=== PATIENT | female | born 1950 | race Caucasian/White ===

== ENCOUNTER 2023-12-04 15:51 | Emergency (ER) | payer OTHER ==
[~2023-12-04] VITALS: Ht 172.7 cm; Wt 62.4 kg
[2023-12-04 16:41] VITALS: BP 167/44; RESP 18; O2SAT 95
[2023-12-04 16:43] VITALS: PULSE 63
== END 2023-12-04 17:01 | disposition left against medical advice (07) ==
LOC: ER 15:54
DX: D64.9 Anemia, unspecified (principal); R53.1 Weakness; I25.10 Atherosclerotic heart disease of native coronary artery without angina pectoris; J44.9 Chronic obstructive pulmonary disease, unspecified; E11.9 Type 2 diabetes mellitus without complications; E78.5 Hyperlipidemia, unspecified; I10 Essential (primary) hypertension; Z95.0 Presence of cardiac pacemaker; Z88.6 Allergy status to analgesic agent
CPT/HCPCS: 93005

== ENCOUNTER 2023-12-06 06:11 | Inpatient (IN) | payer OTHER ==
[2023-12-06] VITALS (15 sets, daily range): BP systolic 129–157; BP diastolic 49–76; PULSE 60–76; RESP 14–26; TEMP 97.6–98.2; O2SAT 90–96
[~2023-12-06] VITALS: Ht 172.7 cm; Wt 69.8 kg
[2023-12-06 07:43] LABS: Basophils # (auto) 0 10 ^3/uL (0-0.2); Basophils % (auto) 0.2 % (0.0-2.0); Eosinophils # (auto) 0 10 ^3/uL (0-0.8); Mean Corpuscular Hemoglobin 17.6 pg (28.0-32.0); White Blood Cell 3.6 10^3/uL (4.4-10.8)
[2023-12-06 07:48] LABS: Hematocrit 19.7 % (36.0-46.0); Lymphocytes # (auto) 1.5 10 ^3/uL (0.4-5.4); Lymphocytes % (auto) 43.1 % (10.0-50.0); Mean Corpuscular Hgb Conc. 29.7 g/dL (32.0-36.0); Mean Corpuscular Volume 59.3 fL (80.0-100.0); Monocytes # (auto) 0.2 10 ^3/uL (0-1.3); Monocytes % (auto) 6.2 % (0.0-12.0); Neutrophils # (auto) 1.8 10 ^3/uL (1.6-8.6); Neutrophils % (auto) 49.5 % (37.0-80.0); Red Blood Cells 3.31 10^6/uL (4.0-5.20)
[2023-12-06 07:51] LABS: INR 1.08 (0.9-1.15); Prothrombin Time 11.4 sec (9.3-11.8)
[2023-12-06 07:58] LABS: Alanine Aminotransferase 20 U/L (7-40); Albumin 4.2 g/dL (3.2-4.8); Alkaline Phosphatase 78 U/L (46-116); Anion Gap 6 (5-15); BUN/Creatinine Ratio 17.8 (10.0-20.0); Blood Urea Nitrogen 16 mg/dL (9-23); Calcium 9.1 mg/dL (8.7-10.4); Carbon Dioxide 28 mmol/L (20-30); Chloride 107 mmol/L (98-107); Glucose 130 mg/dL (74-106); Potassium 3.3 mmol/L (3.5-5.1); Sodium 141 mmol/L (136-145)
[2023-12-06 07:59] LABS: Aspartate Aminotransferase 18 U/L (13-40); Bilirubin, Total 0.4 mg/dL (0.2-1.0); Total Protein 6.2 g/dL (5.7-8.2)
[2023-12-06 08:00] LABS: Hemoglobin 5.8 g/dL (12.2-16.2)
[2023-12-06 09:03] LABS: Hypochromia Marked; Platelet Estimate Decreased
[2023-12-06] MEDS: OXYCODONE W/ ACETAMINOPHEN 5/325MG TABLET PO ONE (10:37)
[2023-12-06] MEDS ORDERED: DEXTROSE (50%) 50ML SYRG IV PRN (14:15)
[2023-12-06] MEDS ORDERED: ACETAMINOPHEN 325 MG TAB PO PRN (14:15)
[2023-12-06] MEDS ORDERED: SODIUM CHLORIDE 0.9% 1,000 ML IV SCH (14:15)
[2023-12-06] MEDS ORDERED: NITROGLYCERIN 0.4 MG SL TAB SL PRN (14:15)
[2023-12-06] MEDS ORDERED: MORPHINE SULFATE INJ 2 MG/ml SYRG IV PRN (14:15)
[2023-12-06 15:07] LABS: % Iron Saturation 4.2 % (15-50)
[2023-12-06] MEDS: SODIUM CHLORIDE 0.9% 1,000 ML IV SCH (15:56)
[2023-12-06] MEDS: ALBUTEROL SULF 2.5 MG/0.5ML(0.5%) NEB SOLN ONE (16:43)
[2023-12-06] MEDS: ALBUTEROL SULF 2.5 MG/0.5ML(0.5%) NEB SOLN NEB ONE (16:45)
[2023-12-06] MEDS: ACCU-CHEK COMFORT CURVE STRIP VI SCH (17:39)
[2023-12-06] MEDS: InsuLIN REG 1unit/0.01ml Soln (100units/ml) SC SCH (17:40)
[2023-12-06 18:15] LABS: Basophils # (auto) 0 10 ^3/uL (0-0.2); Basophils % (auto) 0.3 % (0.0-2.0); Eosinophils # (auto) 0.1 10 ^3/uL (0-0.8); Eosinophils % (auto) 2.2 % (0.0-7.0); Hematocrit 28.7 % (36.0-46.0); Hemoglobin 8.7 g/dL (12.2-16.2); Lymphocytes # (auto) 1.4 10 ^3/uL (0.4-5.4); Lymphocytes % (auto) 22.8 % (10.0-50.0); Mean Corpuscular Hemoglobin 20.2 pg (28.0-32.0); Mean Corpuscular Hgb Conc. 30.3 g/dL (32.0-36.0); Mean Corpuscular Volume 66.8 fL (80.0-100.0); Monocytes # (auto) 0.4 10 ^3/uL (0-1.3); Monocytes % (auto) 5.9 % (0.0-12.0); Neutrophils # (auto) 4.3 10 ^3/uL (1.6-8.6); Neutrophils % (auto) 68.8 % (37.0-80.0); Nucleated Red Blood Cells % 0.1 %; White Blood Cell 6.3 10^3/uL (4.4-10.8)
[2023-12-06] MEDS: IPRATROPIUM BROM 0.5 MG/2.5ML INH SOL NEB SCH (18:27)
[2023-12-06] MEDS: ALBUTEROL SULF 2.5 MG/0.5ML(0.5%) NEB SOLN NEB SCH (18:27)
[2023-12-06 18:51] LABS: Anisocytosis Moderate; Ovalocytes FEW; Platelet Estimate Decreased; Tear Drop Cells FEW
[2023-12-06] MEDS: POTASSIUM CHL 20 Meq TABLET PO ONE (19:41)
[2023-12-06] MEDS: FUROSEMIDE 40 MG/4 ML VIAL IV ONE (19:51)
[2023-12-06] MEDS: FUROSEMIDE 20 MG/2 ML VIAL IV ONE (22:28)
[2023-12-07] VITALS (12 sets, daily range): BP systolic 119–120; BP diastolic 51–90; PULSE 60–69; RESP 12–20; TEMP 97.2–98; O2SAT 3–100
[2023-12-07 00:25] LABS: Hematocrit 27.6 % (36.0-46.0); Hemoglobin 8.8 g/dL (12.2-16.2)
[2023-12-07 00:31] LABS: Urine Bacteria None Seen /hpf (None Seen)
[2023-12-07 02:08] LABS: Urine Blood Negative /uL (Negative); Urine Clarity Clear (Clear); Urine Color Colorless (Yellow); Urine Protein, UAD Negative (Negative); Urine Specific Gravity 1.006 (1.001-1.035); Urine Urobilinogen Normal (Negative); Urine WBC <1 /hpf (0 - 5)
[2023-12-07] MEDS: POTASSIUM CHL 20 Meq TABLET PO ONE (04:24)
[2023-12-07 04:30] LABS: Mean Corpuscular Hemoglobin 20.6 pg (28.0-32.0)
[2023-12-07 04:35] LABS: Hematocrit 29.5 % (36.0-46.0); Hemoglobin 9.3 g/dL (12.2-16.2); Mean Corpuscular Hgb Conc. 31.6 g/dL (32.0-36.0); Mean Corpuscular Volume 65.3 fL (80.0-100.0); Red Blood Cells 4.52 10^6/uL (4.0-5.20); White Blood Cell 6.1 10^3/uL (4.4-10.8)
[2023-12-07 04:39] LABS: Alanine Aminotransferase 25 U/L (7-40); Albumin 4.2 g/dL (3.2-4.8); Alkaline Phosphatase 84 U/L (46-116); Anion Gap 6 (5-15); Aspartate Aminotransferase 24 U/L (13-40); BUN/Creatinine Ratio 16.3 (10.0-20.0); Bilirubin, Total 0.8 mg/dL (0.2-1.0); Blood Urea Nitrogen 14 mg/dL (9-23); Calcium 9.4 mg/dL (8.7-10.4); Carbon Dioxide 30 mmol/L (20-30); Chloride 105 mmol/L (98-107); Glucose 108 mg/dL (74-106); Potassium 3.6 mmol/L (3.5-5.1); Sodium 141 mmol/L (136-145); Total Protein 6.8 g/dL (5.7-8.2)
[2023-12-07 04:55] LABS: Band Neutrophils % (manual) 0; Basophils % (manual) 0 (0.0-2.0); Blast Cells 0; Eosinophils % (manual) 0 (0-7); Metamyelocytes % 0; Myelocytes % 0; Promyelocytes % 0; Reactive Lymphocytes 0; Red Cell Distribution Width 28.1 % (11.8-14.3)
[2023-12-07] MEDS: MORPHINE SULFATE INJ 2 MG/ml SYRG IV PRN (05:00)
[2023-12-07] MEDS: ONDANSETRON HCL 4 MG/2 ML VIAL IV PRN (05:00)
[2023-12-07] MEDS: FUROSEMIDE 40 MG/4 ML VIAL IV SCH (05:41)
[2023-12-07 07:58] LABS: Hypochromia Marked; Lymphocytes % (manual) 11 (10.0-50.0); Monocytes % (manual) 5 (0-12); Platelet Estimate Decreased
[2023-12-07 07:59] LABS: Anisocytosis Moderate; Ovalocytes MANY
[2023-12-07] MEDS ORDERED: OXYC325T10 PO (11:07)
[2023-12-07] MEDS ORDERED: ATOR-47 PO (11:07)
[2023-12-07] MEDS ORDERED: SERT-377 PO (11:07)
[2023-12-07] MEDS ORDERED: FLUT1SPR5 (11:07)
[2023-12-07] MEDS ORDERED: METF-489 PO (11:07)
[2023-12-07] MEDS ORDERED: APIX5TAB PO (11:07)
[2023-12-07] MEDS ORDERED: FURO40TA4 PO (11:07)
[2023-12-07] MEDS ORDERED: LISI-275 PO (11:07)
[2023-12-07 14:40] LABS: % Iron Saturation 4.2 % (15-50)
[2023-12-08] VITALS (18 sets, daily range): BP systolic 109–155; BP diastolic 57–74; PULSE 60–75; RESP 16–98; TEMP 97.9–99; O2SAT 3–100
[2023-12-08 05:51] LABS: Basophils # (auto) 0 10 ^3/uL (0-0.2); Eosinophils # (auto) 0.1 10 ^3/uL (0-0.8); Monocytes # (auto) 0.3 10 ^3/uL (0-1.3); Nucleated Red Blood Cells % 0.1 %
[2023-12-08 05:54] LABS: Basophils % (auto) 0.3 % (0.0-2.0); Eosinophils % (auto) 2.5 % (0.0-7.0); Hematocrit 28.6 % (36.0-46.0); Hemoglobin 9.1 g/dL (12.2-16.2); Lymphocytes # (auto) 1.5 10 ^3/uL (0.4-5.4); Lymphocytes % (auto) 31.9 % (10.0-50.0); Mean Corpuscular Hemoglobin 20.5 pg (28.0-32.0); Mean Corpuscular Hgb Conc. 31.7 g/dL (32.0-36.0); Mean Corpuscular Volume 64.9 fL (80.0-100.0); Monocytes % (auto) 7.2 % (0.0-12.0); Neutrophils # (auto) 2.7 10 ^3/uL (1.6-8.6); Neutrophils % (auto) 58.1 % (37.0-80.0); Red Blood Cells 4.41 10^6/uL (4.0-5.20); Red Cell Distribution Width 27.6 % (11.8-14.3); White Blood Cell 4.6 10^3/uL (4.4-10.8)
[2023-12-08 06:09] LABS: Calcium 9.4 mg/dL (8.7-10.4); Chloride 103 mmol/L (98-107); Potassium 3.6 mmol/L (3.5-5.1); Sodium 139 mmol/L (136-145)
[2023-12-08 06:11] LABS: Anion Gap 5 (5-15); Carbon Dioxide 31 mmol/L (20-30)
[2023-12-08 06:16] LABS: BUN/Creatinine Ratio 24.2 (10.0-20.0); Blood Urea Nitrogen 23 mg/dL (9-23); Glucose 89 mg/dL (74-106)
[2023-12-08] MEDS: HYDROcodone-ACET 5/325MG TAB PO PRN (20:57)
[2023-12-08] MEDS ORDERED: SENNA 8.6 MG TAB PO PRN (21:30)
[2023-12-08] MEDS: BISACODYL 5 MG EC TAB PO PRN (22:06)
[2023-12-09] VITALS (18 sets, daily range): BP systolic 114–137; BP diastolic 43–79; PULSE 60–76; RESP 14–18; TEMP 97.8–98.3; O2SAT 3–99
[2023-12-09 07:08] LABS: Basophils # (auto) 0 10 ^3/uL (0-0.2); Eosinophils # (auto) 0.1 10 ^3/uL (0-0.8); Hemoglobin 8.8 g/dL (12.2-16.2); Lymphocytes # (auto) 1.3 10 ^3/uL (0.4-5.4); Monocytes # (auto) 0.3 10 ^3/uL (0-1.3); Neutrophils # (auto) 2.6 10 ^3/uL (1.6-8.6); White Blood Cell 4.3 10^3/uL (4.4-10.8)
[2023-12-09 07:11] LABS: Basophils % (auto) 0.5 % (0.0-2.0); Eosinophils % (auto) 3.1 % (0.0-7.0); Lymphocytes % (auto) 30.4 % (10.0-50.0); Mean Corpuscular Hemoglobin 20.3 pg (28.0-32.0); Mean Corpuscular Hgb Conc. 31.5 g/dL (32.0-36.0); Mean Corpuscular Volume 64.5 fL (80.0-100.0); Monocytes % (auto) 6.9 % (0.0-12.0); Neutrophils % (auto) 59.1 % (37.0-80.0); Nucleated Red Blood Cells % 0.1 %; Red Blood Cells 4.35 10^6/uL (4.0-5.20)
[2023-12-09 07:20] LABS: Red Cell Distribution Width 27.8 % (11.8-14.3)
[2023-12-09 07:40] LABS: Anion Gap 9 (5-15); Calcium 8.6 mg/dL (8.7-10.4); Carbon Dioxide 22 mmol/L (20-30); Chloride 107 mmol/L (98-107); Potassium 3.2 mmol/L (3.5-5.1); Sodium 138 mmol/L (136-145)
[2023-12-09 07:45] LABS: Glucose 105 mg/dL (74-106)
[2023-12-09 07:46] LABS: BUN/Creatinine Ratio 28.2 (10.0-20.0); Blood Urea Nitrogen 24 mg/dL (9-23)
[2023-12-09] MEDS ORDERED: MIDAZOLAM HCL 2MG/2ML 2ml VIAL (1mg/ml) ONE (17:41)
[2023-12-09] MEDS ORDERED: ONDANSETRON HCL 4 MG/2 ML VIAL IV ONE (17:45)
[2023-12-09] MEDS ORDERED: PROPOFOL 10 MG/ML 20 ML IV ONE (17:55)
[2023-12-09] MEDS ORDERED: GOLYTELY 4L KIT PO ONE (18:00)
[2023-12-10] VITALS (17 sets, daily range): BP systolic 102–142; BP diastolic 51–69; PULSE 56–78; RESP 16–20; TEMP 97.9–98.5; O2SAT 91–100
[2023-12-10 05:30] LABS: Basophils # (auto) 0 10 ^3/uL (0-0.2); Eosinophils # (auto) 0.1 10 ^3/uL (0-0.8); Hematocrit 29.6 % (36.0-46.0); Hemoglobin 9.3 g/dL (12.2-16.2); Mean Corpuscular Volume 64.7 fL (80.0-100.0)
[2023-12-10 05:37] LABS: Basophils % (auto) 0.7 % (0.0-2.0); Eosinophils % (auto) 4.2 % (0.0-7.0); Lymphocytes # (auto) 0.6 10 ^3/uL (0.4-5.4); Lymphocytes % (auto) 19.1 % (10.0-50.0); Mean Corpuscular Hemoglobin 20.3 pg (28.0-32.0); Mean Corpuscular Hgb Conc. 31.4 g/dL (32.0-36.0); Monocytes # (auto) 0.4 10 ^3/uL (0-1.3); Monocytes % (auto) 13.8 % (0.0-12.0); Neutrophils # (auto) 1.8 10 ^3/uL (1.6-8.6); Neutrophils % (auto) 62.2 % (37.0-80.0); Red Blood Cells 4.57 10^6/uL (4.0-5.20)
[2023-12-10 05:38] LABS: Chloride 103 mmol/L (98-107); Potassium 3.6 mmol/L (3.5-5.1); Red Cell Distribution Width 27.7 % (11.8-14.3); Sodium 137 mmol/L (136-145)
[2023-12-10 05:39] LABS: Anion Gap 6 (5-15); Calcium 9.8 mg/dL (8.7-10.4); Carbon Dioxide 28 mmol/L (20-30)
[2023-12-10 05:44] LABS: BUN/Creatinine Ratio 25.8 (10.0-20.0); Blood Urea Nitrogen 24 mg/dL (9-23); Glucose 117 mg/dL (74-106)
[2023-12-10 09:58] LABS: Platelet Estimate Decreased
[2023-12-10 10:02] LABS: Hypochromia Marked
[2023-12-10 10:03] LABS: Anisocytosis Moderate; Ovalocytes MANY
[2023-12-11] VITALS (16 sets, daily range): BP systolic 114–142; BP diastolic 49–89; PULSE 57–79; RESP 16–21; TEMP 98.1–98.6; O2SAT 94–100
[2023-12-11 06:10] LABS: Basophils # (auto) 0 10 ^3/uL (0-0.2); Nucleated Red Blood Cells % 0.1 %
[2023-12-11 06:14] LABS: Chloride 102 mmol/L (98-107); Potassium 3.4 mmol/L (3.5-5.1); Sodium 137 mmol/L (136-145)
[2023-12-11 06:15] LABS: Anion Gap 5 (5-15); Carbon Dioxide 30 mmol/L (20-30)
[2023-12-11 06:16] LABS: Calcium 9.2 mg/dL (8.7-10.4)
[2023-12-11 06:19] LABS: Basophils % (auto) 0.8 % (0.0-2.0); Eosinophils # (auto) 0.2 10 ^3/uL (0-0.8); Eosinophils % (auto) 4.8 % (0.0-7.0); Hemoglobin 9.6 g/dL (12.2-16.2); Lymphocytes # (auto) 0.6 10 ^3/uL (0.4-5.4); Lymphocytes % (auto) 18.9 % (10.0-50.0); Mean Corpuscular Hemoglobin 20.9 pg (28.0-32.0); Mean Corpuscular Volume 65.3 fL (80.0-100.0); Monocytes # (auto) 0.4 10 ^3/uL (0-1.3); Monocytes % (auto) 12.3 % (0.0-12.0); Neutrophils % (auto) 63.2 % (37.0-80.0); Red Blood Cells 4.59 10^6/uL (4.0-5.20); Red Cell Distribution Width 28.4 % (11.8-14.3); White Blood Cell 3.2 10^3/uL (4.4-10.8)
[2023-12-11 06:20] LABS: BUN/Creatinine Ratio 26.9 (10.0-20.0); Blood Urea Nitrogen 25 mg/dL (9-23); Glucose 100 mg/dL (74-106)
[2023-12-11 08:26] LABS: Platelet Estimate Decreased
[2023-12-11 08:28] LABS: Anisocytosis Moderate; Hypochromia Moderate; Ovalocytes MODERATE
[2023-12-11] MEDS: GOLYTELY 4L KIT PO ONE (16:33)
[2023-12-12] VITALS (10 sets, daily range): BP systolic 102–132; BP diastolic 48–68; PULSE 54–82; RESP 14–22; TEMP 97.7–98.5; O2SAT 92–100
[2023-12-12] MEDS ORDERED: FLUMAZENIL 0.1 MG/ML INJ 10ML MDV IV ONE (08:23)
[2023-12-12] MEDS ORDERED: diphenhdrAMINE HCL 50 MG/1 ML VL ONE (08:23)
[2023-12-12] MEDS ORDERED: NALOXONE HCL 0.4 MG/ML VIAL ONE (08:23)
[2023-12-12] MEDS ORDERED: SODIUM CHLORIDE LOCK 10 ML ONE (08:23)
[2023-12-12] MEDS: fentaNYL CITRATE 100 MCG/2 ML VL ONE (08:40)
[2023-12-12] MEDS: MIDAZOLAM HCL 5 MG/ML-1ML VIAL ONE (08:40)
== END 2023-12-12 11:40 | disposition home health service (06) | DRG 811 ==
LOC: ER 06:11 → TELE 14:15 → TELE-WESTW 12-07 15:54
PROVIDERS: ADMIT Internal Medicine; ATTEND Internal Medicine
PROC: 30233N1 Transfusion of Nonautologous Red Blood Cells into Peripheral Vein, Percutaneous Approach (ICD-10-PCS; 2023-12-06)
PROC: 0DB98ZX Excision of Duodenum, Via Natural or Artificial Opening Endoscopic, Diagnostic (ICD-10-PCS; principal; 2023-12-09 17:32)
PROC: 0DJD8ZZ Inspection of Lower Intestinal Tract, Via Natural or Artificial Opening Endoscopic (ICD-10-PCS; 2023-12-12)
DX: D50.9 Iron deficiency anemia, unspecified (principal); I50.33 Acute on chronic diastolic (congestive) heart failure; K31.811 Angiodysplasia of stomach and duodenum with bleeding; J96.21 Acute and chronic respiratory failure with hypoxia; I13.0 Hypertensive heart and chronic kidney disease with heart failure and stage 1 through stage 4 chronic kidney disease, or unspecified chronic kidney disease; J44.1 Chronic obstructive pulmonary disease with (acute) exacerbation; I48.20 Chronic atrial fibrillation, unspecified; J98.11 Atelectasis; F17.210 Nicotine dependence, cigarettes, uncomplicated; E11.22 Type 2 diabetes mellitus with diabetic chronic kidney disease; N18.2 Chronic kidney disease, stage 2 (mild); I25.10 Atherosclerotic heart disease of native coronary artery without angina pectoris; E78.5 Hyperlipidemia, unspecified; K76.1 Chronic passive congestion of liver; I27.20 Pulmonary hypertension, unspecified; Z95.5 Presence of coronary angioplasty implant and graft; Z95.0 Presence of cardiac pacemaker; Z90.710 Acquired absence of both cervix and uterus; Z79.01 Long term (current) use of anticoagulants; Z80.1 Family history of malignant neoplasm of trachea, bronchus and lung; Z85.51 Personal history of malignant neoplasm of bladder
CPT/HCPCS: 36415; 45378; 71045; 74176; 80048; 80053; 81001; 82728; 82962; 83540; 83550; 83615; 84132; 85007; 85014; 85018; 85025; 85027; 85610; 86850; 86880; 86900; 86901; 86920; 93306; 94640; G0378; J1815; J2250; J2405; J2704

== ENCOUNTER 2024-01-02 10:19 | Day surgery (SDC) | payer OTHER ==
[~2024-01-02] VITALS: Ht 172.7 cm; Wt 64.0 kg
[~2024-01-02 10:19] MED LIST: AMLO1TAB22 PO; APIX5TAB PO; ATOR-47 PO; FLUT1SPR5; LISI-275 PO; METF-489 PO; PERCOT PO; PREG50CA PO; SERT-377 PO
[2024-01-02] MEDS ORDERED: LIDOCAINE VISCOUS 2% 15ML UD PO ONE (12:00)
[2024-01-02] MEDS ORDERED: fentaNYL CITRATE 100 MCG/2 ML VL IV ONE (12:00)
[2024-01-02] MEDS ORDERED: MIDAZOLAM HCL 2MG/2ML 2ml VIAL (1mg/ml) IV ONE (12:00)
[2024-01-02] MEDS ORDERED: HEPARIN IN NS 1000Units/500mL 1,500 ML ONE (12:07)
[2024-01-02] MEDS ORDERED: IODIXANOL 320MG/ML 100ML BTL IV ONE (12:07)
[2024-01-02] MEDS ORDERED: fentaNYL CITRATE 100 MCG/2 ML VL ONE ×2 (12:15→13:23)
[2024-01-02] MEDS ORDERED: MIDAZOLAM HCL 2MG/2ML 2ml VIAL (1mg/ml) ONE ×2 (12:15→13:23)
[2024-01-02] MEDS ORDERED: VERAPAMIL 2.5MG/ML INJ 2ML VIAL IV ONE (13:22)
[2024-01-02] MEDS ORDERED: HEPARIN SODIUM (PORCINE) 5000 UNITS/ML 1ML VIAL ONE (13:22)
[2024-01-02] MEDS ORDERED: ANGIOMAX 250 MG VIAL IV ONE (13:22)
[2024-01-02] MEDS ORDERED: LIDOCAINE 2%HCL (LOCAL ANESTH.) INJ 20ML MDV ONE (13:23)
[2024-01-02] MEDS ORDERED: hydrALAZINE HCL 20 MG/ML VL ONE (14:14)
== END 2024-01-02 17:15 | disposition home or self-care (01) ==
LOC: CATH 10:19
PROVIDERS: ATTEND Internal Medicine
DX: I08.0 Rheumatic disorders of both mitral and aortic valves (principal); J44.9 Chronic obstructive pulmonary disease, unspecified; F41.8 Other specified anxiety disorders; Z86.2 Personal history of diseases of the blood and blood-forming organs and certain disorders involving the immune mechanism; Z90.710 Acquired absence of both cervix and uterus; Z88.8 Allergy status to other drugs, medicaments and biological substances
CPT/HCPCS: 93312; 93325; 93460; C1769; C1887; C1894; J0360; J1644; J2250; J3010; Q9967; 99152; 99153

== ENCOUNTER 2024-01-23 07:40 | Day surgery (SDC) | payer OTHER ==
[2024-01-23] VITALS (11 sets, daily range): BP systolic 107–150; BP diastolic 44–66; PULSE 60–64; RESP 13–17; TEMP 99.1; O2SAT 91–97
[~2024-01-23] VITALS: Ht 172.7 cm; Wt 64.0 kg
[~2024-01-23 07:40] MED LIST changes: +GABA-339 PO; +MECL-90 PO; +PEN400T PO; +PREG25CA PO; -PREG50CA PO
[2024-01-23] MEDS ORDERED: HEPARIN IN NS 1000Units/500mL 1,500 ML ONE (08:44)
[2024-01-23] MEDS ORDERED: IODIXANOL 320MG/ML 100ML BTL IV ONE (08:44)
[2024-01-23] MEDS ORDERED: ANGIOMAX 250 MG VIAL IV ONE (08:57)
[2024-01-23] MEDS ORDERED: fentaNYL CITRATE 100 MCG/2 ML VL ONE (08:57)
[2024-01-23] MEDS ORDERED: MIDAZOLAM HCL 2MG/2ML 2ml VIAL (1mg/ml) ONE (08:57)
[2024-01-23] MEDS ORDERED: LIDOCAINE 2%HCL (LOCAL ANESTH.) INJ 20ML MDV ONE (08:58)
[2024-01-23] MEDS ORDERED: SODIUM CHL 0.9% 0 ML ONE (08:58)
[2024-01-23] MEDS ORDERED: PRE5T PO (09:03)
== END 2024-01-23 14:10 | disposition home or self-care (01) ==
LOC: CATH 07:40
PROVIDERS: ATTEND Internal Medicine
DX: I70.213 Atherosclerosis of native arteries of extremities with intermittent claudication, bilateral legs (principal); I25.10 Atherosclerotic heart disease of native coronary artery without angina pectoris; F17.210 Nicotine dependence, cigarettes, uncomplicated; J44.9 Chronic obstructive pulmonary disease, unspecified; F41.9 Anxiety disorder, unspecified; I48.0 Paroxysmal atrial fibrillation; Z88.8 Allergy status to other drugs, medicaments and biological substances; Z90.49 Acquired absence of other specified parts of digestive tract; Z79.899 Other long term (current) drug therapy; Z90.710 Acquired absence of both cervix and uterus; Z95.0 Presence of cardiac pacemaker; Z87.440 Personal history of urinary (tract) infections
CPT/HCPCS: 36245; 75716; C1760; C1894; J1644; J2250; J3010; J7030; Q9967; 75710; 99152

== ENCOUNTER 2024-03-05 15:07 | Emergency (ER) | payer OTHER ==
[~2024-03-05] VITALS: Ht 172.7 cm; Wt 63.4 kg
[~2024-03-05 15:07] MED LIST changes: +PRE5T PO
[2024-03-05 15:37] LABS: Basophils # (auto) 0.1 10 ^3/uL (0-0.2); Basophils % (auto) 1.2 % (0.0-2.0); Eosinophils # (auto) 0.1 10 ^3/uL (0-0.8); Eosinophils % (auto) 2.6 % (0.0-7.0); Hematocrit 37.5 % (36.0-46.0); Hemoglobin 11.7 g/dL (12.2-16.2); Lymphocytes # (auto) 1.5 10 ^3/uL (0.4-5.4); Lymphocytes % (auto) 26.8 % (10.0-50.0); Mean Corpuscular Hemoglobin 22.2 pg (28.0-32.0); Mean Corpuscular Hgb Conc. 31.3 g/dL (32.0-36.0); Monocytes # (auto) 0.3 10 ^3/uL (0-1.3); Monocytes % (auto) 5.9 % (0.0-12.0); Neutrophils # (auto) 3.5 10 ^3/uL (1.6-8.6); Neutrophils % (auto) 63.5 % (37.0-80.0); Nucleated Red Blood Cells % 0.2 %; Platelet Count (auto) 187 10^3/uL (140-450); Red Blood Cells 5.29 10^6/uL (4.0-5.20); White Blood Cell 5.5 10^3/uL (4.4-10.8)
[2024-03-05 15:38] LABS: Red Cell Distribution Width 26.6 % (11.8-14.3)
[2024-03-05 15:44] LABS: Urine Bacteria FEW /hpf (None Seen); Urine Blood 2+ /uL (Negative); Urine Clarity Turbid (Clear); Urine Color Light-Yellow (Yellow); Urine Mucus FEW (None Seen); Urine Protein, UAD TRACE (Negative); Urine Specific Gravity 1.016 (1.001-1.035); Urine Urobilinogen Normal (Negative); Urine WBC 72 /hpf (0 - 5); Urine pH 5.5 (5.0-9.0)
[2024-03-05 15:47] VITALS: PULSE 62; RESP 16; O2SAT 98
[2024-03-05 15:58] LABS: Alanine Aminotransferase 11 U/L (7-40); Albumin 4.5 g/dL (3.2-4.8); Alkaline Phosphatase 101 U/L (46-116); Anion Gap 4 (5-15); Aspartate Aminotransferase 12 U/L (13-40); BUN/Creatinine Ratio 21.6 (10.0-20.0); Blood Urea Nitrogen 22 mg/dL (9-23); Calcium 9.8 mg/dL (8.7-10.4); Carbon Dioxide 28 mmol/L (20-31); Chloride 109 mmol/L (98-107); Glucose 124 mg/dL (74-106); Potassium 4.1 mmol/L (3.5-5.1); Sodium 141 mmol/L (136-145)
[2024-03-05 15:59] LABS: Bilirubin, Total 0.3 mg/dL (0.2-1.0); Total Protein 7.2 g/dL (5.7-8.2)
[2024-03-05 16:33] LABS: INR 1.04 (0.9-1.15); Partial Thromboplastin Time 26.6 SEC (24.5-34.5)
[2024-03-05] MEDS: cefTRIAXone 1GM/50ML D5W 50 ML IV ONE (18:31)
[2024-03-05] MEDS: SODIUM CHLORIDE 0.9% 1,000 ML IV ONE (18:31)
[2024-03-05 19:49] VITALS: PULSE 63; RESP 13; TEMP 97.7; O2SAT 88
[2024-03-05 20:06] LABS: Urine Bacteria None Seen /hpf (None Seen)
[2024-03-05 20:30] LABS: Urine Blood Negative /uL (Negative); Urine Clarity Clear (Clear); Urine Color Light-Yellow (Yellow); Urine Protein, UAD Negative (Negative); Urine Specific Gravity 1.016 (1.001-1.035); Urine Urobilinogen Normal (Negative); Urine WBC 5 /hpf (0 - 5); Urine pH 6.5 (5.0-9.0)
[2024-03-05] MEDS: amLODIPine BESYLATE 5 MG TAB PO ONE (20:47)
[2024-03-05 20:51] VITALS: BP 152/60; PULSE 62; RESP 15; O2SAT 92
[2024-03-05] MEDS ORDERED: LISINOPRIL 5 MG TAB PO ONE (21:30)
== END 2024-03-05 21:07 | disposition home or self-care (01) ==
LOC: ER 15:07
DX: I71.40 Abdominal aortic aneurysm, without rupture, unspecified (principal); J44.9 Chronic obstructive pulmonary disease, unspecified; I10 Essential (primary) hypertension; I25.10 Atherosclerotic heart disease of native coronary artery without angina pectoris; E11.9 Type 2 diabetes mellitus without complications; E78.5 Hyperlipidemia, unspecified; Z79.84 Long term (current) use of oral hypoglycemic drugs; Z79.899 Other long term (current) drug therapy; Z90.49 Acquired absence of other specified parts of digestive tract; Z90.710 Acquired absence of both cervix and uterus; Z85.51 Personal history of malignant neoplasm of bladder; Z95.0 Presence of cardiac pacemaker; Z79.01 Long term (current) use of anticoagulants; Z88.5 Allergy status to narcotic agent
CPT/HCPCS: 36415; 74176; 80053; 81001; 82962; 84484; 85025; 85610; 85730; 93005; 96365; 99285; J0696

== ENCOUNTER 2024-05-11 15:06 | Emergency (ER) | payer OTHER ==
[~2024-05-11] VITALS: Ht 167.6 cm; Wt 60.0 kg
[2024-05-11 15:43] VITALS: BP 157/72; PULSE 66; RESP 16; TEMP 98.1; O2SAT 95
[2024-05-11] MEDS: OXYCODONE W/ ACETAMINOPHEN 5/325MG TABLET PO ONE (15:50)
--- NOTE | 2024-05-11 16:20 | DVH ---
US LT LOWER DVT US 05/11/2024 03:50 PM Clinical History: recent dvt Comparison: None Technique: Duplex Doppler evaluation of the deep venous system of the left lower extremity from the common femor al vein to the popliteal vein including color Doppler and spectral/pulsed waveform analysis was perfo rmed. Findings: The common femoral vein demonstrates appropriate compressibility and waveform variability. There is compressibility/patency of the great saphenous vein at the proximal thigh. The femoral vein demonstrates appropriate compressibility and waveform variability. The deep femoral vein demonstrates appropriate compressibility and waveform variability. The popliteal vein demonstrates appropriate compressibility and waveform variability. There is color flow in the tibioperoneal trunk and posterior tibial vein. A 2.8 cm kaur's cyst noted. Impression: 1. No deep venous thrombosis left lower extremity. If clinical concern/symptoms persist or worsen, s hort-interval follow-up study is suggested. 2. Small Kaur's cyst.
--- NOTE | 2024-05-11 16:28 | ED.PDOC ---
HPI Comments 73y F who presents to the ED for chief complaint of chest pain. Pt states she recently had aortic valve replacement 3 days prior and states he has been having groin pain ner site of insertion of surgery with associated chest pain radiating to his chest getting progressively worse since. Pt states the pain is sharp in nature, constant, with no associated exacerbating or relieving factors. Pt otherwise denies diaphoresis, palpitations, shortness of breath, diaphoresis, nausea, vomiting, headache or dizziness. Pt otherwise denies any other symptoms at this time. Chief Complaint: chest pain Time Seen by MD: 16:22 Primary Care Provider: nunu Reviewed Notes: Medications Allergies: Coded Allergies: Meperidine (Verified Allergy, Severe, 01/18/24) Home Meds Reported Medications Prednisone (Prednisone) 5 Mg Tab, 5 MG PO BID 01/23/24 Oxycodone W/ Acetaminophen (Percocet 5/325MG) 1 Tab Tb, 1 TAB PO PRN for MOD TO SEVERE PAIN, #120 TAB 01/18/24 Gabapentin (Gabapentin) 600 Mg Tab, 600 MG PO TID for neuropathy, MG 01/18/24 Pentoxifylline (TRENTAL ER TABLET) 400 Mg Tb, 400 MG PO BID for PVD, TAB 01/18/24 Pregabalin (Lyrica) 25 Mg Cap, 50 MG PO for NERVE PAIN, CAP 01/18/24 Meclizine Hcl (Meclizine Hcl) 25 Mg Tab, 25 MG PO BID for 30 Days, MG 01/18/24 Apixaban Base (ELIQUIS) 5 Mg Tab, 5 MG PO BID for S/P CARDIAC STENTS, TAB 01/01/24 Amlodipine Besylate (Amlodipine Besylate) 5 Mg Tab, 5 MG PO DAILY for HTN for 30 Days, MG 01/01/24 Lisinopril (Lisinopril) 5 Mg Tab, 5 MG PO BID for HTN, MG 12/07/23 Fluticasone Propionate (Nasal) (Flonase Allergy Relief) 50 Mcg/Act Spr, 2 SPRAY NA BID, SPRAY 12/07/23 Sertraline HCl (Sertraline Hydrochloride) 100 Mg Tab, 200 MG PO DAILY for DEPRESSION, TAB 12/07/23 Atorvastatin Calcium (ATORVASTATIN CALCIUM) 80 Mg Tab, 80 MG PO QPM for HIGH CHOLESTEROL, TAB 12/07/23 Metformin Hydrochloride (METFORMIN HCL ER) 500 Mg Tab, 500 MG PO DAILY for DIABETES, TAB 12/07/23 Information Source: Patient Mode of Arrival: Wheelchair Past Medical History PAST MEDICAL HISTORY: CAD, COPD, DM, High Lipids, HTN Surgical History: Denies all surgeries Surgical History (Other): aortic valve repair CALENDER INSPECTOR History: Denies all CALENDER INSPECTOR Hx Family History Family History: Reviewed,noncontributory to illness Social History Smoker: Non-Smoker Alcohol: Denies ETOH Use Drugs: Denies Drug Use Lives In: Home Constitutional: denies: chills, diaphoresis, fatigue, fever, malaise, sweats, weakness, others EENTM: denies: blurred vision, double vision, ear bleeding, ear discharge, ear drainage, ear pain, ear ringing, eye pain, eye redness, hearing loss, mouth pain, mouth swelling, nasal discharge, nose bleeding, nose congestion, nose pain, photophobia, tearing, throat pain, throat swelling, voice changes, others Respiratory: denies: cough, hemoptysis, orthopnea, SOB at rest, shortness of breath, SOB with excertion, stridor, wheezing, others Cardiovascular: reports: chest pain; denies: dizzy spells, diaphoresis, Dyspnea on exertion, edema, irregular heart beat, left arm pain, lightheadedness, palpitations, PND, syncope, others Gastrointestinal: denies: abdomen distended, abdominal pain, blood streaked bowels, constipated, diarrhea, dysphagia, difficulty swallowing, hematemesis, melena, nausea, poor appetite, poor fluid intake, rectal bleeding, rectal pain, vomiting, others Genitourinary: reports: others (groin pain); denies: abnormal vagina bleeding, burning, dyspareunia, dysuria, flank pain, frequency, hematuria, incontinence, pain, , vagina discharge, urgency Neurological: denies: dizziness, fainting, headache, left sided numbness, left sided weakness, numbness, paresthesia, pre-existing deficit, right sided numbness, right sided weakness, seizure, speech problems, tingling, tremors, weakness, others Musculoskeletal: denies: back pain, gout, joint pain, joint swelling, muscle pain, muscle stiffness, neck pain, others Integumetry: denies: bruises, change in color, change in hair/nails, dryness, laceration, lesions, lumps, rash, wounds, others Allergic/Immunocompromised: denies: Difficulty Healing, Frequent Infections, Hives, Itching, others Hematologic/Lymphatic: denies: anemia, blood clots, easy bleeding, easy bruising, swollen glands, others Endocrine: denies: excessive hunger, excessive sweating, excessive thirst, excessive urination, flushing, intolerance to cold, intolerance to heat, unexplained weight gain, unexplained weight loss, others Psychiatric: denies: anxiety, bipolar disorder, depression, hopeless, panic disorder, schizophrenia, sleepless, suicidal, others All Other Systems: Reviewed and Negative Physical Exam General Appearance: No Apparent Distress, Normal HEENT: Normal ENT Inspection, Pharynx Normal, TMs Normal Neck: Full Range of Motion, Non-Tender, Normal, Normal Inspection Respiratory: Chest Non-Tender, Lungs Clear, No Accessory Muscle Use, No Respiratory Distress, Normal Breath Sounds Cardiovascular: No Edema, No JVD, No Murmur, No Gallop, Normal Peripheral Pulses, Regular Rate/Rhythm Breast Exam: Deferred Gastrointestinal: No Organomegaly, Non Tender, No Pulsatile Mass, Normal Bowel Sounds, Soft Genitalia: Deferred Pelvic: Deferred Rectal: Deferred Extremities: No calf tenderness, Normal capillary refill, Normal inspection, No rmal range of motion, Non-tender, No pedal edema Musculoskeletal : Apperance: Normal Neurologic: Alert, realty specialist II-XII nml as Tested, No Motor Deficits, Normal Affect, Normal Mood, No Sensory Deficits Cerebellar Function: Normal Reflexes: Normal Skin: Dry, Normal Color, Warm Lymphatic: No Adenopathy Was a procedure done? Was a procedure done?: No CP Differential Dx Differential Diagnosis: A-fib, A-Flutter, Angina, Atrial Dysrhythmia, Electrolyte Disorder, PAC's, Pulmonary Embolus, PVC's, Sinus Tachycardia, Ventricular Dysrhythmia Other Differential Diagnosis post- operative complications, cellulitis, sepsis X-Ray, Labs, Meds, VS Vital Signs Date Time Temp Pulse Resp B/P (MAP) Pulse Ox O2 Delivery O2 Flow Rate FiO2 05/11/24 15:43 98.1 95 16 157/72 (100) 95 98.1 05/11/24 15:43 66 16 95 Room Air 05/11/24 15:21 97.6 76 17 152/71 (98) 97 Lab Test 05/11/24 17:02 Range/Units Sodium Level 138 136-145 mmol/L Potassium Level 4.2 3.5-5.1 mmol/L Chloride Level 105 98-107 mmol/L Carbon Dioxide Level 26 20-31 mmol/L Anion Gap 7 5-15 Blood Urea Nitrogen 23 9-23 mg/dL Creatinine 1.04 H 0.550-1.02 mg/dL Glomerular Filtration Rate Calc 56 >90 mL/min BUN/Creatinine Ratio 22.1 H 10.0-20.0 Serum Glucose 134 H 74-106 mg/dL Calcium Level 10.2 8.7-10.4 mg/dL Current Medications Medications (Trade) Dose Ordered Sig/Felipe Route Start Time Stop Time Status Last Admin Oxycodone/ Acetaminophen (Percocet 5/ 325MG Tablet) 2 tab ONCE ONCE PO 05/11/24 15:30 05/11/24 15:31 DC 05/11/24 15:50 [place] [id number] Ph: [phone] DIAGNOSTIC IMAGING Diagnostic Imaging Report : [id number] Signed PATIENT: HILLARY PEARL ACCT: [id number] UNIT: [id number] : 1950 LOC: ER ROOM / BED: / AGE / SEX: 73 / F ADM STATUS: REG ER SERVICE [id number] ORDERING PHYSICIAN: CORA SINGH PROCEDURE(s): LLDVT - LT Lower DVT REASON: recent dvt ORDER NUMBER(s): [id number], ACCESSION NUMBER(s): [id number] US LT LOWER DVT 05/11/2024 03:50 PM Clinical History: recent dvt Comparison: None Technique: Duplex Doppler evaluation of the deep venous system of the left lower extremity from the common femoral vein to the popliteal vein including color Doppler and spectral/pulsed waveform analysis was performed. Findings: The common femoral vein demonstrates appropriate compressibility and waveform variability. There is compressibility/patency of the great saphenous vein at the proximal thigh. The femoral vein demonstrates appropriate compressibility and waveform variability. The deep femoral vein demonstrates appropriate compressibility and waveform variability. The popliteal vein demonstrates appropriate compressibility and waveform variability. There is color flow in the tibioperoneal trunk and posterior tibial vein. A 2.8 cm kaur's cyst noted. Impression: 1. No deep venous thrombosis left lower extremity. If clinical concern/symptoms persist or worsen, short-interval follow-up study is suggested. 2. Small Kaur's cyst. ATED BY: CASSANDRA SNOI MD DICTATED DATE/TIME: 05/11/241616 SIGNED BY: CASSANDRA SONI MD SIGNED DATE/TIME: 05/11/241616 CC: X-Ray, Labs, Meds, VS Comment Imaging: X-rays and CT scans were reviewed and interpreted by this provider, imaging shows no fractures and no pathological disease. Pending radiology review. Laboratory: Labs reviewed and interpreted by this provider. No significant abnormalities noted. Patient has prior medical visits reviewed. Med reconciliation performed Vital signs reviewed Time of 1ST Reevaluation: 17:00 Reevaluation 1ST: Improved Patient Education/Counseling: Diagnosis, Treatment, Need For Follow Up (Follow up with the PCP in next 3-5 days.) Family Education/Counseling: No Family Present Additional Information - I reviewed the following notes from patient's past medical encounters: - The following tests were ordered, and results were reviewed by me: (Labs, X- Ray, EKG):BMP, CT angio chest, Left lower DVT, - Additional information was gathered from interviewing the following independent Historian: (Family, Other Providers, EMT): none - I reviewed and agreed with the following test results read by other provider: (X-ray, CT, US): radiologist - I discussed treatments and results with medical personnel and: (consultants, family): none Departure 1 Departure Time of Disposition: 19:59 Impression: Primary Impression: Abdominal aneurysm Additional Impressions: Generalized weakness Groin pain Qualified Codes: R10.32 - Left lower quadrant pain Disposition: 01 HOME / SELF CARE / HOMELESS Condition: Fair e-Prescriptions Oxycodone W/ Acetaminophen (Oxycodone/Acetaminophen 10-300 mg) 1 Tab Tab 1 TAB PO TID for 3 Days, #9 TAB Prov: CORA SINGH 05/11/24 Discharged With: Self Critical Care Note Critical Care Time?: No Stability Stability form required: No Heart Score Heart Score: Heart Score Response (Comments) Value History N/A 0 EKG N/A 0 Age N/A 0 Risk Factors N/A 0 Troponin N/A 0 Total 0 I personally scribed for CORA SINGH SLEEP SCIENTIST ([email or web address]) on 05/11/24 at 16:28. Electronically submitted by [facility] I personally scribed for COAR SINGH SLEEP SCIENTIST ([facility] on 05/11/24 at 18:54. Electronically submitted by Mahsa Boone ([facility] CORA SINGH SLEEP SCIENTIST May 11, 2024 16:28
[2024-05-11 17:21] LABS: Chloride 105 mmol/L (98-107); Potassium 4.2 mmol/L (3.5-5.1); Sodium 138 mmol/L (136-145)
[2024-05-11 17:22] LABS: Anion Gap 7 (5-15); Carbon Dioxide 26 mmol/L (20-31)
[2024-05-11 17:23] LABS: Calcium 10.2 mg/dL (8.7-10.4)
[2024-05-11 17:27] LABS: BUN/Creatinine Ratio 22.1 (10.0-20.0); Blood Urea Nitrogen 23 mg/dL (9-23)
[2024-05-11 18:12] LABS: Glucose 134 mg/dL (74-106)
[2024-05-11] MEDS: IOHEXOL 350 MG/ML 100ML IJ ONE (18:56)
--- NOTE | 2024-05-11 19:21 | DVH ---
Exam: CT ANGIO AORTIC ABDOMINAL History: R/O DISSECTION Comparison Study: None available TECHNIQUE: A digital striping machine operator image was obtained. During the uneventful, intravenous administration of c ontrast material, multislice data acquisition was obtained through the abdomen and pelvis. The data s et was subsequently reconstructed into axial images. Images reviewed on a wrist examination is an exa mination of axial and multiplanar reformations using a variety of window levels and settings. 3D MIP images are available for review RADIATION DOSE: DLP 583.0 mGy.cm; CTDI vol 11.84 mGy. Findings: Lungs: The lung bases are clear. Heart: The visualized heart is unremarkable. No cardiomegaly or pericardial effusion. Severe coronary atherosclerosis versus stents. Liver: Unremarkable. Gallbladder: Unremarkable. Spleen: Unremarkable Pancreas: Unremarkable Adrenals: 1.7 x 2.3 cm hyperdense left adrenal nodule. Kidneys: Bilateral renal cysts and subcentimeter hypodense lesions in the kidneys which are too small to characterize. GI tract: Unremarkable : Unremarkable. 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 No aortic dissection. The celiac axis, superior mesenter ic artery, bilateral renal arteries, and inferior mesenteric artery are within normal limits. Lymphadenopathy: Absent Peritoneum: No ascites Musculoskeletal: Moderate multilevel degenerative changes of the thoracolumbar spine Soft tissues: Bilateral breast implants. Impression: 1. No acute abdominopelvic abnormalities. 2. 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 3. No aortic dissection. 4. 1.7 x 2.3 cm hyperdense left adrenal nodule. Recommend a nonemegent, outpatient adrenal protocol C T for further evaluation. 5. Other non-acute, ancillary findings as described above.
--- NOTE | 2024-05-11 19:32 | DVH ---
EXAM: CT CT ANGIO CHEST CONTRAST History: r/o pe Comparison Study: None available TECHNIQUE: A digital barrel reamer image was obtained. During the uneventful, intravenous administration of c ontrast material, multislice data acquisition was obtained through the chest. 3-D postprocessing is p erformed by technologist including MIP imaging Radiation Dose : CTDI vol not available mGy, DLP not available mGy*cm. Findings: Lungs: The lungs are clear. Pleura: Unremarkable Heart/Great vessels: The visualized heart is unremarkable. No cardiomegaly or pericardial effusion. T horacic aorta measures 3.1 cm at the diaphragmatic hiatus. No thoracic aortic dissection or pulmonar y emboli. Severe coronary atherosclerosis versus stents. Mediastinum: Unremarkable Soft tissues/Bones: Moderate multilevel degenerative changes of the thoracic spine. Bilateral breast implants. Impression: 1. No evidence of pulmonary embolism or dissection. 2. 3.1 cm fusiform thoracic aortic aneurysm at the diaphragmatic hiatus.
[2024-05-11] MEDS ORDERED: OXYC-963 PO (19:58)
== END 2024-05-11 20:10 | disposition home or self-care (01) ==
LOC: ER 15:06
DX: I71.40 Abdominal aortic aneurysm, without rupture, unspecified (principal); J44.9 Chronic obstructive pulmonary disease, unspecified; E11.9 Type 2 diabetes mellitus without complications; I10 Essential (primary) hypertension; I25.10 Atherosclerotic heart disease of native coronary artery without angina pectoris; Z79.01 Long term (current) use of anticoagulants; Z79.52 Long term (current) use of systemic steroids; Z79.84 Long term (current) use of oral hypoglycemic drugs; Z79.899 Other long term (current) drug therapy; Z86.718 Personal history of other venous thrombosis and embolism; Z88.5 Allergy status to narcotic agent; Z95.2 Presence of prosthetic heart valve
CPT/HCPCS: 36415; 71275; 74175; 80048; 93971; 99285; Q9967

== ENCOUNTER 2024-11-17 11:54 | Inpatient (IN) | payer OTHER ==
[~2024-11-17] VITALS: Ht 167.6 cm; Wt 66.0 kg
[~2024-11-17 11:54] MED LIST changes: +OXYC-963 PO
--- NOTE | 2024-11-17 12:15 | ED.PDOC ---
GI ASSESSMENT HPI Comments 74 y.o female with PMHx of HTN, DM, COPD, and bladder cancer, presents to the ED for a chief complaint of ongoing diffused abdominal pain radiating to her pelvic that started months ago. Patient went to see Dr. Ulrich today, explained her symptoms and was sent to the ED to rule out possible aortic aneurysm. Patient mentions having an aortic valve replacement at [facility] on April. Patient denies any chest pain, SOB, nausea, vomiting, diarrhea, fever, chills or dysuria. Patient reports pain is worse today and also states recent mechanical fall in the bathtub with right leg pain. She admits to tobacco use, cut down to 3 cigarettes per day and denies any substance or alcohol use. Chief Complaint: Abdominal Pain Time Seen by MD: 12:06 Primary Care Provider: nunu Reviewed Notes: Nurses Notes, Medications, Allergies Allergies: Coded Allergies: Meperidine (Verified Allergy, Severe, 01/18/24) Home Meds Active Scripts Oxycodone W/ Acetaminophen (Oxycodone/Acetaminophen 10-300 mg) 1 Tab Tab, 1 TAB PO TID for 3 Days, #9 TAB Prov:CORA SINGH 05/11/24 Reported Medications Prednisone (Prednisone) 5 Mg Tab, 5 MG PO BID 01/23/24 Oxycodone W/ Acetaminophen (Percocet 5/325MG) 1 Tab Tb, 1 TAB PO PRN for MOD TO SEVERE PAIN, #120 TAB 01/18/24 Gabapentin (Gabapentin) 600 Mg Tab, 600 MG PO TID for neuropathy, MG 01/18/24 Pentoxifylline (TRENTAL ER TABLET) 400 Mg Tb, 400 MG PO BID for PVD, TAB 01/18/24 Pregabalin (Lyrica) 25 Mg Cap, 50 MG PO for NERVE PAIN, CAP 01/18/24 Meclizine Hcl (Meclizine Hcl) 25 Mg Tab, 25 MG PO BID for 30 Days, MG 01/18/24 Apixaban Base (ELIQUIS) 5 Mg Tab, 5 MG PO BID for S/P CARDIAC STENTS, TAB 01/01/24 Amlodipine Besylate (Amlodipine Besylate) 5 Mg Tab, 5 MG PO DAILY for HTN for 30 Days, MG 01/01/24 Lisinopril (Lisinopril) 5 Mg Tab, 5 MG PO BID for HTN, MG 12/07/23 Fluticasone Propionate (Nasal) (Flonase Allergy Relief) 50 Mcg/Act Spr, 2 SPRAY NA BID, SPRAY 12/07/23 Sertraline HCl (Sertraline Hydrochloride) 100 Mg Tab, 200 MG PO DAILY for DEPRESSION, TAB 12/07/23 Atorvastatin Calcium (ATORVASTATIN CALCIUM) 80 Mg Tab, 80 MG PO QPM for HIGH CH OLESTEROL, TAB 12/07/23 Metformin Hydrochloride (METFORMIN HCL ER) 500 Mg Tab, 500 MG PO DAILY for DIABETES, TAB 12/07/23 Information Source: Patient Mode of Arrival: Ambulatory Timing: Months Duration: Since onset Quality: Sharp Vomitus: None Stool: Normal Severity: Moderate Recent: None Recent Hx of: None Pain Location: Diffuse Modifying Factors: Nothing Associated sign and symptoms: Abdominal Pain Past Medical History PAST MEDICAL HISTORY: CAD, COPD, DM, High Lipids, HTN Surgical History: Appendectomy, Hysterectomy Surgical History (Other): 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 FRONT DESK COORDINATOR History: Denies all FRONT DESK COORDINATOR Hx Family History Family History: Family hx of Cancer Social History Smoker: Cigarettes, Less Than 1 Pack/Day Alcohol: Denies ETOH Use Drugs: Denies Drug Use Lives In: Home Constitutional: denies: chills, diaphoresis, fatigue, fever, malaise, sweats, weakness, others EENTM: denies: blurred vision, double vision, ear bleeding, ear discharge, ear drainage, ear pain, ear ringing, eye pain, eye redness, hearing loss, mouth pain, mouth swelling, nasal discharge, nose bleeding, nose congestion, nose pain, photophobia, tearing, throat pain, throat swelling, voice changes, others Respiratory: denies: cough, hemoptysis, orthopnea, SOB at rest, shortness of breath, SOB with excertion, stridor, wheezing, others Cardiovascular: denies: chest pain, dizzy spells, diaphoresis, Dyspnea on exertion, edema, irregular heart beat, left arm pain, lightheadedness, palpitations, PND, syncope, others Gastrointestinal: reports: abdominal pain; denies: abdomen distended, blood streaked bowels, constipated, diarrhea, dysphagia, difficulty swallowing, hematemesis, melena, nausea, poor appetite, poor fluid intake, rectal bleeding, rectal pain, vomiting, others Genitourinary: denies: abnormal vagina bleeding, burning, dyspareunia, dysuria, flank pain, frequency, hematuria, incontinence, pain, , vagina discharge, urgency, others Neurological: denies: dizziness, fainting, headache, left sided numbness, left sided weakness, numbness, paresthesia, pre-existing deficit, right sided numbness, right sided weakness, seizure, speech problems, tingling, tremors, weakness, others Musculoskeletal: denies: back pain, gout, joint pain, joint swelling, muscle pain, muscle stiffness, neck pain, others Integumetry: denies: bruises, change in color, change in hair/nails, dryness, laceration, lesions, lumps, rash, wounds, others Allergic/Immunocompromised: denies: Difficulty Healing, Frequent Infections, Hives, Itching, others Hematologic/Lymphatic: denies: anemia, blood clots, easy bleeding, easy bruising, swollen glands, others Endocrine: denies: excessive hunger, excessive sweating, excessive thirst, excessive urination, flushing, intolerance to cold, intolerance to heat, unexplained weight gain, unexplained weight loss, others Psychiatric: denies: anxiety, bipolar disorder, depression, hopeless, panic disorder, schizophrenia, sleepless, suicidal, others All Other Systems: Reviewed and Negative Physical Exam General Appearance: Moderate Distress HEENT: Normal ENT Inspection, Pharynx Normal, TMs Normal Neck: Full Range of Motion, Non-Tender, Normal, Normal Inspection Respiratory: Chest Non-Tender, Lungs Clear, No Accessory Muscle Use, No Respiratory Distress, Normal Breath Sounds Cardiovascular: No Edema, No JVD, No Murmur, No Gallop, Normal Peripheral Pulses, Regular Rate/Rhythm Breast Exam: Deferred Gastrointestinal: Diffuse, No Organomegaly, No Pulsatile Mass, Normal Bowel Sounds, Soft, Tenderness Genitalia: Deferred Pelvic: Deferred Rectal: Deferred Extremities: No calf tenderness, Normal capillary refill, Normal inspection, Normal range of motion, Non-tender, No pedal edema Musculoskeletal : Apperance: Normal Neurologic: Alert, four 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 Was a procedure done?: No GI differential Dx Differential Diagnosis: AAA, Bowel Obstruction, Esophageal rupture, Esophagitis, Gastroenteritis, Inflammatory BD, Ovarian cyst/torsion X-Ray, Labs, Meds, VS Vital Signs Date Time Temp Pulse Resp B/P (MAP) Pulse Ox O2 Delivery O2 Flow Rate FiO2 11/17/24 21:00 61 15 154/69 (97) 94 11/17/24 20:50 60 17 157/82 11/17/24 20:38 188/98 11/17/24 20:21 60 14 176/100 11/17/24 20:00 97.7 60 16 176/100 (125) 94 97.7 11/17/24 19:30 90 Nasal Cannula* 3 32 11/17/24 19:10 60 14 164/81 11/17/24 18:41 61 20 167/86 (113) 92 11/17/24 18:25 61 11/17/24 17:55 61 12 176/90 11/17/24 17:08 60 12 160/76 11/17/24 16:59 60 14 160/76 (104) 94 11/17/24 15:00 60 14 125/62 (83) 93 11/17/24 14:51 60 14 170/85 11/17/24 14:15 61 12 170/85 11/17/24 13:45 60 11 138/83 11/17/24 13:12 60 12 138/83 11/17/24 13:08 60 12 93 Nasal Cannula* 2 28 11/17/24 12:42 60 17 151/75 11/17/24 12:40 98.4 61 15 151/75 (100) 92 98.4 11/17/24 12:06 97.3 83 18 148/70 (96) 96 97.3 Lab Test 11/17/24 12:54 11/17/24 12:02 Range/Units White Blood Count 4.9 4.4-10.8 10^3/uL Red Blood Count 5.02 4.0-5.20 10^6/uL Hemoglobin 14.2 12.2-16.2 g/dL Hematocrit 42.4 36.0-46.0 % Mean Corpuscular Volume 84.4 80.0-100.0 fL Mean Corpuscular Hemoglobin 28.4 28.0-32.0 pg Mean Corpuscular Hemoglobin Concent 33.6 32.0-36.0 g/dL Red Cell Distribution Width 15.6 H 11.8-14.3 % Platelet Count 117 L 140-450 10^3/uL Mean Platelet Volume 8.1 6.9-10.8 fL Neutrophils (%) (Auto) 63.1 37.0-80.0 % Lymphocytes (%) (Auto) 22.6 10.0-50.0 % Monocytes (%) (Auto) 8.7 0.0-12.0 % Eosinophils (%) (Auto) 5.0 0.0-7.0 % Basophils (%) (Auto) 0.6 0.0-2.0 % Neutrophils # (Auto) 3.1 1.6-8.6 10 ^3/uL Lymphocytes # (Auto) 1.1 0.4-5.4 10 ^3/uL Monocytes # (Auto) 0.4 0-1.3 10 ^3/uL Eosinophils # (Auto) 0.2 0-0.8 10 ^3/uL Basophils # (Auto) 0 0-0.2 10 ^3/uL Nucleated Red Blood Cells 0.2 % Sodium Level 142 136-145 mmol/L Potassium Level 4.0 3.5-5.1 mmol/L Chloride Level 111 H 98-107 mmol/L Carbon Dioxide Level 25 20-31 mmol/L Anion Gap 6 5-15 Blood Urea Nitrogen 23 9-23 mg/dL Creatinine 1.03 H 0.550-1.02 mg/dL Glomerular Filtration Rate Calc 56 >90 mL/min BUN/Creatinine Ratio 22.3 H 10.0-20.0 Serum Glucose 99 74-106 mg/dL Calcium Level 9.7 8.7-10.4 mg/dL Urine Color Light-yellow Yellow Urine Clarity Clear Clear Urine pH 5.0 5.0-9.0 Urine Specific [place] 1.014 1.001-1.035 Urine Protein Negative Negative Urine Ketones Negative Negative Urine Blood Negative Negative /uL Urine Nitrite Negative Negative Urine Bilirubin Negative Negative Urine Urobilinogen Normal Negative mg/dL Urine Leukocyte Esterase Trace Negative /uL Urine RBC 1 0 - 4 /hpf Urine Microscopic WBC 4 0-5 /HPF Urine Squamous Epithelial Cells None seen <5 /hpf Urine Bacteria None seen None Seen /hpf Urine Glucose Normal Normal mg/dL Current Medications Medications (Trade) Dose Ordered Sig/Felipe Route Start Time Stop Time Status Last Admin Ondansetron HCl (Zofran) 4 mg ONCE ONCE IV 6/30/25 12:15 11/17/24 12:16 DC 11/17/24 12:41 Morphine Sulfate 4 mg ONCE ONCE IV 11/17/24 12:15 11/17/24 12:16 DC 11/17/24 12:42 Sodium Chloride 500 ml @ 500 mls/hr Q1H ONCE IVB 11/17/24 12:15 11/17/24 13:21 DC 11/17/24 12:42 Hydromorphone HCl (Dilaudid Injection) 0.5 mg ONCE ONCE IV 11/17/24 13:45 11/17/24 13:46 DC 11/17/24 13:45 Ondansetron HCl (Zofran) 4 mg ONCE ONCE IV 11/17/24 13:45 11/17/24 13:46 DC 11/17/24 13:45 Hydromorphone HCl (Dilaudid Injection) 0.5 mg ONCE ONCE IV 11/17/24 14:45 11/17/24 14:46 DC 11/17/24 14:51 Hydromorphone HCl (Dilaudid Injection) 0.5 mg ONCE ONCE IV 11/17/24 17:00 11/17/24 17:01 DC 11/17/24 17:08 Hydromorphone HCl (Dilaudid Injection) 0.5 mg ONCE ONCE IV 11/17/24 20:15 11/17/24 20:16 DC 11/17/24 20:21 Ondansetron HCl (Zofran) 4 mg ONCE ONCE IV 11/17/24 20:15 11/17/24 20:16 DC 11/17/24 20:20 Hydralazine HCl (Apresoline Injection) 15 mg ONCE ONCE IV 11/17/24 20:15 11/17/24 20:16 DC 11/17/24 20:38 The patient's CBC is within normal limits The chemistry panel is within normal limits The urine test is negative The patient was given morphine he is 4 mg IV push The patient was given Zofran 4 mg IV push for the nausea The patient was given Dilaudid 0.5 mg IV push The patient was also given Zofran and then at least a couple of the doses of Dilaudid and Zofran because of persistent pain We are waiting the CAT scan results The patient will be signed out to Dr. Bangura We did speak with the hospitalist because the glass bender did send the patient in for admission At this time the patient will be signed out Images Reviewed?: Images reviewed and evaluated by me Time of 1ST Reevaluation: 13:00 Reevaluation 1ST: Unchanged Patient Education/Counseling: Diagnosis, Treatment, Prognosis Family Education/Counseling: No Family Present SEPSIS Sepsis Screen Physician Orders Ct Ab Pel With Iv Con Only (11/17/24 12:10) Heplock Iv (11/17/24 12:10) Outsole Handler (11/17/24 12:10) Blood Pressure (11/17/24 12:10) Pulse Oximetry (11/17/24 12:10) Hydralazine Injection (Apresoline Inject (11/17/24 20:45) Vital Signs Date Time Temp Pulse Resp B/P (MAP) Pulse Ox O2 Delivery O2 Flow Rate FiO2 11/17/24 21:00 61 15 154/69 (97) 94 11/17/24 20:50 60 17 157/82 11/17/24 20:38 188/98 11/17/24 20:21 60 14 176/100 11/17/24 20:00 97.7 60 16 176/100 (125) 94 97.7 11/17/24 19:30 90 Nasal Cannula* 3 32 11/17/24 19:10 60 14 164/81 11/17/24 18:41 61 20 167/86 (113) 92 11/17/24 18:25 61 11/17/24 17:55 61 12 176/90 11/17/24 17:08 60 12 160/76 11/17/24 16:59 60 14 160/76 (104) 94 11/17/24 15:00 60 14 125/62 (83) 93 11/17/24 14:51 60 14 170/85 11/17/24 14:15 61 12 170/85 11/17/24 13:45 60 11 138/83 11/17/24 13:12 60 12 138/83 11/17/24 13:08 60 12 93 Nasal Cannula* 2 28 11/17/24 12:42 60 17 151/75 11/17/24 12:40 98.4 61 15 151/75 (100) 92 98.4 11/17/24 12:06 97.3 83 18 148/70 (96) 96 97.3 Laboratory Tests Test 11/17/24 12:54 White Blood Count 4.9 10^3/uL (4.4-10.8) Medications Medications Dose Ordered Sig/Felipe Route Start Time Stop Time Status Last Admin Dose Admin Hydralazine HCl 15 mg ONCE ONCE IV 11/17/24 20:15 11/17/24 20:16 DC 11/17/24 20:38 Hydromorphone HCl 0.5 mg ONCE ONCE IV 11/17/24 13:45 11/17/24 13:46 DC 11/17/24 13:45 Hydromorphone HCl 0.5 mg ONCE ONCE IV 11/17/24 14:45 11/17/24 14:46 DC 11/17/24 14:51 Hydromorphone HCl 0.5 mg ONCE ONCE IV 11/17/24 17:00 11/17/24 17:01 DC 11/17/24 17:08 Hydromorphone HCl 0.5 mg ONCE ONCE IV 11/17/24 20:15 11/17/24 20:16 DC 11/17/24 20:21 Morphine Sulfate 4 mg ONCE ONCE IV 11/17/24 12:15 11/17/24 12:16 DC 11/17/24 12:42 Ondansetron HCl 4 mg ONCE ONCE IV 11/17/24 12:15 11/17/24 12:16 DC 11/17/24 12:41 Ondansetron HCl 4 mg ONCE ONCE IV 11/17/24 13:45 11/17/24 13:46 DC 11/17/24 13:45 Ondansetron HCl 4 mg ONCE ONCE IV 11/17/24 20:15 11/17/24 20:16 DC 11/17/24 20:20 Sodium Chloride 500 ml @ 500 mls/hr Q1H ONCE IVB 11/17/24 12:15 11/17/24 13:21 DC 11/17/24 12:42 Departure 1 Departure Time of Disposition: 21:44 Impression: Primary Impression: Generalized weakness Additional Impression: Intractable abdominal pain Disposition: 09 ADMITTED INPATIENT Admit to: Tele Condition: Fair Discharged With: Self Critical Care Note Critical Care Time?: No Stability Stability form required: No I personally scribed for SAAD WEINSTEIN MD ([email or web address]) on 11/17/24 at 12:15. Electronically submitted by Maddy Walls ([facility]). SAAD WEINSTEIN MD Nov 17, 2024 12:15
[2024-11-17] MEDS: ONDANSETRON HCL 4 MG/2 ML VIAL IV ONE ×3 (12:41→20:20)
[2024-11-17] MEDS: MORPHINE SULFATE 4 MG/ML SYR/VIAL IV ONE (12:42)
[2024-11-17] MEDS: SODIUM CHLORIDE 0.9% 500 ML IVB ONE (12:42)
[2024-11-17 12:59] LABS: Urine Protein, UAD Negative (Negative)
[2024-11-17 13:08] VITALS: PULSE 60; RESP 12; O2SAT 93
[2024-11-17 13:09] LABS: Hematocrit 42.4 % (36.0-46.0); Hemoglobin 14.2 g/dL (12.2-16.2); Mean Corpuscular Hemoglobin 28.4 pg (28.0-32.0); Mean Corpuscular Volume 84.4 fL (80.0-100.0); Nucleated Red Blood Cells % 0.2 %
[2024-11-17 13:17] LABS: Potassium 4.0 mmol/L (3.5-5.1); Sodium 142 mmol/L (136-145)
[2024-11-17 13:18] LABS: Anion Gap 6 (5-15); Carbon Dioxide 25 mmol/L (20-31)
[2024-11-17 13:19] LABS: Calcium 9.7 mg/dL (8.7-10.4)
[2024-11-17 13:20] LABS: Chloride 111 mmol/L (98-107)
[2024-11-17 13:23] LABS: BUN/Creatinine Ratio 22.3 (10.0-20.0); Blood Urea Nitrogen 23 mg/dL (9-23); Glucose 99 mg/dL (74-106)
[2024-11-17] MEDS: HYDROmorphone HCL 2 MG/ML VL/or syr IV ONE ×4 (13:45→20:21)
[2024-11-17 19:30] VITALS: O2SAT 90
[2024-11-17] MEDS: hydrALAZINE HCL 20 MG/ML VL IV ONE (20:38)
--- NOTE | 2024-11-17 22:04 | DVH ---
CLINICAL HISTORY: pain TECHNIQUE: CT of the abdomen and pelvis was performed with intravenous contrast. 100 mL omnipaque 300 This exam was performed according to our departmental dose optimization program. Up-to-date CT equip ment and radiation dose reduction techniques are utilized as appropriate. CTDIVol: 9.43 mGy DLP: 498.76 mGy-cm WID: COMPARISON: [facility] abdomen and pelvis from 05/11/2024 report from [facility] chest abdomen and pelvis dated FINDINGS: Lower Thorax: Partially imaged right breast implant with calcification of the capsule. Mild cardiomeg queta without pericardial effusion. There is a transcatheter aortic valve in place. There are pacemaker leads terminating in the right atrial appendage and right ventricle. There is interlobular septal th ickening in the lung bases. There is mild dependent atelectasis in the bilateral lower lobes, greater on the right. Liver and Biliary system: Normal-sized liver. There is peripheral hyperenhancement in the right lobe of the liver on series 5, image 56 which could be perfusional. Major portal veins are patent. The ga llbladder is borderline dilated without definite wall thickening. Mild dilatation of the common bile duct measuring 9.4 mm on coronal image 35. Mild central intrahepatic bile duct dilatation. Unchanged tiny hypodensity in segment 2 of the liver likely a cyst. Spleen: Unremarkable. Adrenal Glands and Kidneys: Unchanged 2.6 cm left adrenal gland nodule on series 5, image 46. Unchang ed 2.0 cm right adrenal gland nodule on series 5, image 48. Redemonstration of intermediate density i n upper and lower pole left renal calices on series 5, images 58 and 73. There are multifocal bilater al renal cortical scarring. There are bilateral renal hypodensities some of which are too small to c haracterize, though may reflect cysts. No hydronephrosis. Pancreas and Retroperitoneum: Grossly unremarkable pancreas. No retroperitoneal lymphadenopathy. Aorta and Major Vessels: Multifocal aneurysm of the abdominal aorta again noted. This measures up to 5 cm AP on series 602, image 87 and 4.6 cm transverse on series 601, image 42. There is marked mixed atherosclerotic plaque in the aortoiliac vessels. There is a chronic short-segment dissections in the distal abdominal aorta. Bowel, Mesentery and Peritoneal space: Normal caliber small and large bowel. There is no free air or fluid collection. Pelvis: Urinary bladder is mildly distended. Prior hysterectomy. There is no pelvic lymphadenopathy. Abdominal wall and Osseous Structures: Mild left convexity scoliosis of the lumbar spine. Multilevel lower thoracic and lumbar spondylosis. Grade 1 anterolisthesis at L4-L5. No destructive osseous lesio n. IMPRESSION: 1. Mild dilatation of the common bile duct. If there is clinical concern for biliary obstruction, MRC P could be pursued for further evaluation 2. Unchanged bilateral adrenal gland nodules. 3. Unchanged intermediate density in the left upper and lower pole renal calices with unchanged diffe rential diagnosis. 4. Mild Cardiomegaly and interstitial pulmonary edema in the lung bases. 5. Marked mixed atherosclerotic plaque in the aortoiliac vessels. 6. 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 Multifocal aneurysm of the abdominal aorta measuring up to 5 cm AP and 4.6 cm transverse. 8. No bowel obstruction, fluid collection, or free air.
[2024-11-17] MEDS ORDERED: ACETAMINOPHEN 325 MG TAB PO PRN (22:15)
[2024-11-17] MEDS: MORPHINE SULFATE INJ 2 MG/ml SYRG IV PRN (22:29)
[2024-11-17] MEDS: ONDANSETRON HCL 4 MG/2 ML VIAL IV PRN (22:29)
[2024-11-17] MEDS ORDERED: IPRATROPIUM BROM 0.5 MG/2.5ML INH SOL NEB PRN (22:30)
[2024-11-17 22:31] VITALS: BP 154/69; PULSE 60; RESP 14; TEMP 97.7; O2SAT 94
[2024-11-17] MEDS: SODIUM CHLORIDE 0.9% 1,000 ML IV SCH (22:57)
[2024-11-17] MEDS: LISINOPRIL 5 MG TAB PO ONE (23:32)
[2024-11-17] MEDS: HYDROcodone-ACET 5/325MG TAB PO PRN (23:49)
[2024-11-18] VITALS (42 sets, daily range): BP systolic 93–193; BP diastolic 53–89; PULSE 60–64; RESP 10–22; TEMP 97.8–98.7; O2SAT 86–96
--- NOTE | 2024-11-18 00:34 | DVHHP2 ---
Admitting Diagnosis: Abdominal pain, dilated bile duct, hypertension urgency History of Present Illness History Source: Patient Exam Limitations: No limitations HPI Mrs. Annika Alfonso is a 74 y.o female with a history of HTN, DM, COPD, and bladder cancer, who presents with a chief complaint of ongoing diffused abdominal pain radiating to her pelvic that started months ago. Patient went to see Dr. Ulrich yesterday, explained her symptoms and was sent to the ED to rule out possible aortic aneurysm. Patient mentions having an aortic valve replacement at [facility] on April. Patient denies any chest pain, SOB, nausea, vomiting, diarrhea, fever, chills or dysuria. Patient CT abdomen and pelvis w contrast resulted : 1. Mild dilatation of the common bile duct. If there is clinical concern for biliary obstruction, MRCP could be pursued for further evaluation2. Unchanged bilateral adrenal gland nodules. 3. Unchanged intermediate density in the left upper and lower pole renal calices with unchanged differential diagnosis. 4. Mild Cardiomegaly and interstitial pulmonary edema in the lung bases. 5. Marked mixed atherosclerotic plaque in the aortoiliac vessels. 6. 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 Multifocal aneurysm of the abdominal aorta measuring up to 5 cm AP and 4.6 cm transverse. 8. No bowel obstruction, fluid collection, or free air. Patient reports she is down to smoking 3 cigarettes daily. Patient also endorses she has a non compatible MRI Pacemaker. Home Meds Active Scripts Oxycodone W/ Acetaminophen (Oxycodone/Acetaminophen 10-300 mg) 1 Tab Tab, 1 TAB PO TID for 3 Days, #9 TAB Prov:CORA SINGH 05/11/24 Reported Medications Prednisone (Prednisone) 5 Mg Tab, 5 MG PO BID 01/23/24 Oxycodone W/ Acetaminophen (Percocet 5/325MG) 1 Tab Tb, 1 TAB PO PRN for MOD TO SEVERE PAIN, #120 TAB 01/18/24 Gabapentin (Gabapentin) 600 Mg Tab, 600 MG PO TID for neuropathy, MG 01/18/24 Pentoxifylline (TRENTAL ER TABLET) 400 Mg Tb, 400 MG PO BID for PVD, TAB 01/18/24 Pregabalin (Lyrica) 25 Mg Cap, 50 MG PO for NERVE PAIN, CAP 01/18/24 Meclizine Hcl (Meclizine Hcl) 25 Mg Tab, 25 MG PO BID for 30 Days, MG 01/18/24 Apixaban Base (ELIQUIS) 5 Mg Tab, 5 MG PO BID for S/P CARDIAC STENTS, TAB 01/01/24 Amlodipine Besylate (Amlodipine Besylate) 5 Mg Tab, 5 MG PO DAILY for HTN for 30 Days, MG 01/01/24 Lisinopril (Lisinopril) 5 Mg Tab, 5 MG PO BID for HTN, MG 12/07/23 Fluticasone Propionate (Nasal) (Flonase Allergy Relief) 50 Mcg/Act Spr, 2 SPRAY NA BID, SPRAY 12/07/23 Sertraline HCl (Sertraline Hydrochloride) 100 Mg Tab, 200 MG PO DAILY for DEPRESSION, TAB 12/07/23 Atorvastatin Calcium (ATORVASTATIN CALCIUM) 80 Mg Tab, 80 MG PO QPM for HIGH CHOLESTEROL, TAB 12/07/23 Metformin Hydrochloride (METFORMIN HCL ER) 500 Mg Tab, 500 MG PO DAILY for DIABETES, TAB 12/07/23 Past Medical History Cardiac: HTN Pulmonary: No pertinent Hx Central Nervous System: No pertinent Hx GI: No pertinent Hx Hemotology/Oncology: Cancer (Bladder ) Hepatobiliary: No pertinent Hx Psychiatric: No pertinent Hx Musculoskeletal: No pertinent Hx Rheumotologic: No pertinent Hx Infectious Disease: No peritnent Hx ENT: No pertinent Hx Renal/: No pertinent Hx Endocrine: NIDDM Dermatology: No pertinent Hx Past Surgical History: Other (AVR at [facility]) Patient Family History: Patient reports no known family medical history. Smoker: <1 pack per day Alocohol: None Drugs: None Domestic Violence: Neg Review of Systems Constitutional: No symptom reported Ears, Nose, & Throat: No symptom reported Eyes: No symptom reported Pulmonary/Respiratory: No symptom reported Cardiovascular: No symptom reported Gastrointestinal: Abdominal Pain Genitourinary: No symptom reported Musculoskeletal: No symptom reported Skin: No symptom reported Psychiatric: No symptom reported Endocrine: No symptom reported Hemotologic/Lymphatic: No symptom reported H&P Exam Vital Signs Vital Signs Date Time Temp Pulse Resp B/P (MAP) Pulse Ox O2 Delivery O2 Flow Rate FiO2 11/18/24 00:15 94 Nasal Cannula 3.0 11/18/24 00:15 32 11/17/24 23:32 177/66 11/17/24 22:59 62 16 11/17/24 22:31 97.7 97.7 General Appeara: Well developed, Well nourished, Normal Appearance Head Exam: Normal inspection Neck Exam: Normal inspection, Non-tender, Normal alignment Eye Exam: bilateral eye Normal inspection, bilateral eye PERRL, bilateral eye EOMI Ear Exam: bilateral ear Auricle normal Nasal Exam: Normal inspection Mouth: Normal Inspection Pulmonary/Respiratory: Normal inspection, Normal breath sounds, Chest non- tender, Lungs clear Cardiovascular/Chest: Normal inspection, Regular rate, Normal Rhythm Peripheral Pulses: 2+ dorsalis pedis (R), 2+ dorsalis pedis (L), 2+ Radial (R), 2+ Radial (L) Abdominal Exam: Normal bowel sounds, Soft Rectal Exam: Deferred SNELLER HAND Exam: Normal hearing, Normal speech, PERRL Neuro/Mental St: Alert, Oriented Appearance: Appropriate appearance, Appropriate insight Eye contact/ Speech: Cooperative, Good eye contact, Normal speech Thoughts/Psych: Normal thought pattern Skin Exam: Normal inspection, Normal color, Warm/dry Labs/Xrays Labs Test 11/17/24 23:36 11/17/24 12:54 11/17/24 12:02 Range/Units POC Glucose 85 70-106 mg/dl White Blood Count 4.9 4.4-10.8 10^3/uL Red Blood Count 5.02 4.0-5.20 10^6/uL Hemoglobin 14.2 12.2-16.2 g/dL Hematocrit 42.4 36.0-46.0 % Mean Corpuscular Volume 84.4 80.0-100.0 fL Mean Corpuscular Hemoglobin 28.4 28.0-32.0 pg Mean Corpuscular Hemoglobin Concent 33.6 32.0-36.0 g/dL Red Cell Distribution Width 15.6 H 11.8-14.3 % Platelet Count 117 L 140-450 10^3/uL Mean Platelet Volume 8.1 6.9-10.8 fL Neutrophils (%) (Auto) 63.1 37.0-80.0 % Lymphocytes (%) (Auto) 22.6 10.0-50.0 % Monocytes (%) (Auto) 8.7 0.0-12.0 % Eosinophils (%) (Auto) 5.0 0.0-7.0 % Basophils (%) (Auto) 0.6 0.0-2.0 % Neutrophils # (Auto) 3.1 1.6-8.6 10 ^3/uL Lymphocytes # (Auto) 1.1 0.4-5.4 10 ^3/uL Monocytes # (Auto) 0.4 0-1.3 10 ^3/uL Eosinophils # (Auto) 0.2 0-0.8 10 ^3/uL Basophils # (Auto) 0 0-0.2 10 ^3/uL Nucleated Red Blood Cells 0.2 % Sodium Level 142 136-145 mmol/L Potassium Level 4.0 3.5-5.1 mmol/L Chloride Level 111 H 98-107 mmol/L Carbon Dioxide Level 25 20-31 mmol/L Anion Gap 6 5-15 Blood Urea Nitrogen 23 9-23 mg/dL Creatinine 1.03 H 0.550-1.02 mg/dL Glomerular Filtration Rate Calc 56 >90 mL/min BUN/Creatinine Ratio 22.3 H 10.0-20.0 Serum Glucose 99 74-106 mg/dL Calcium Level 9.7 8.7-10.4 mg/dL Urine Color Light-yellow Yellow Urine Clarity Clear Clear Urine pH 5.0 5.0-9.0 Urine Specific [place] 1.014 1.001-1.035 Urine Protein Negative Negative Urine Ketones Negative Negative Urine Blood Negative Negative /uL Urine Nitrite Negative Negative Urine Bilirubin Negative Negative Urine Urobilinogen Normal Negative mg/dL Urine Leukocyte Esterase Trace Negative /uL Urine RBC 1 0 - 4 /hpf Urine Microscopic WBC 4 0-5 /HPF Urine Squamous Epithelial Cells None seen <5 /hpf Urine Bacteria None seen None Seen /hpf Urine Glucose Normal Normal mg/dL Assessment/Plan Problem List: (1) Intractable abdominal pain (2) Common bile duct dilation (3) Hypertensive urgency (4) Abdominal aneurysm Plan This is a 74 yo female with known history of hypertension, DM, COPD, Bladder CA, Pacemaker, AVR at [facility] who presents with abdominal pain. Patient found to have 1. Intractable abdominal pain 2. Dilated Bile Duct 3. Hypertensive urgency 4. AAA 5. DM type 2 Plan: Admit to Telemetry , upgraded to ICU for hypertensive urgency General surgeon consultation Unable to do MRCP due to non MRI compatible pacemaker per patient reported Clear liquids IV fluids Nicardipine drip per protocol as needed for optimal blood pressure management Analgesics as needed Discussed all above with patient who verbalizes agreement and understanding of care plan. All questions were answered. Discussed with supervising MD. Plan discussed with: Patient, Other Code Visit Code Visit Total Time (mins): 45 Additional Comments Additional Comments Additional Comments Patient's chart is reviewed and discussed with the nurse practitioner. Patient is seen evaluated and admitted by PROCUREMENT ANALYST this morning. I agree with the her evaluation, documentation, assessment and care plan as outlined. Patient is seen and evaluated by me this afternoon and discussed care plan with the patient along with the nurse and vascular surgeon at bedside. CASE SALTER Nov 18, 2024 00:34 CAROL ADAMES MD Nov 18, 2024 15:55
[2024-11-18] MEDS: HYDROmorphone HCL 2 MG/ML VL/or syr IV ONE (02:12)
[2024-11-18 04:37] LABS: Alanine Aminotransferase 10 U/L (7-40); Albumin 4.0 g/dL (3.2-4.8); Alkaline Phosphatase 96 U/L (46-116); Anion Gap 4 (5-15); BUN/Creatinine Ratio 18.8 (10.0-20.0); Bilirubin, Total 0.5 mg/dL (0.2-1.0); Blood Urea Nitrogen 16 mg/dL (9-23); Calcium 9.1 mg/dL (8.7-10.4); Carbon Dioxide 26 mmol/L (20-31); Chloride 111 mmol/L (98-107); Glucose 100 mg/dL (74-106); Potassium 4.0 mmol/L (3.5-5.1); Sodium 141 mmol/L (136-145); Total Protein 6.4 g/dL (5.7-8.2)
[2024-11-18] MEDS: MORPHINE SULFATE INJ 2 MG/ml SYRG IV PRN (05:47)
[2024-11-18] MEDS: NICARDIPINE HCL IN SODIUM CHLO 200 ML IV SCH (07:00)
[2024-11-18] MEDS: PANTOPRAZOLE 40 MG/10 ML VIAL INJ IV SCH ×2 (10:22→23:37)
[2024-11-18] MEDS: LISINOPRIL 5 MG TAB PO SCH (10:23)
--- NOTE | 2024-11-18 16:33 | DVHCONRES ---
Date Seen: Nov 18, 2024 Resident Creating Document: FELIPE MEYER Jr., MD Referring Physician sarah Reason for Consultation symptomatic AAA History of Present Illness Mrs. Annika Alfonso is a 74 y.o female with a history of HTN, DM, COPD, and bladder cancer, who presents with a chief complaint of ongoing diffused abdominal pain radiating to her pelvic that started months ago. Patient went to see Dr. Ulrich yesterday, explained her symptoms and was sent to the ED to rule out possible aortic aneurysm. Patient mentions having an aortic valve replacement at [facility] on April. Patient denies any chest pain, SOB, nausea, vomiting, diarrhea, fever, chills or dysuria. Patient CT abdomen and pelvis w contrast resulted : 1. Mild dilatation of the common bile duct. If there is clinical concern for biliary obstruction, MRCP could be pursued for further evaluation2. Unchanged bilateral adrenal gland nodules. 3. Unchanged intermediate density in the left upper and lower pole renal calices with unchanged differential diagnosis. 4. Mild Cardiomegaly and interstitial pulmonary edema in the lung bases. 5. Marked mixed atherosclerotic plaque in the aortoiliac vessels. 6. 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 Multifocal aneurysm of the abdominal aorta measuring up to 5 cm AP and 4.6 cm transverse. 8. No bowel obstruction, fluid collection, or free air. Patient reports she is down to smoking 3 cigarettes daily. Patient also endorses she has a non compatible MRI Pacemaker. Past Medical History htn, aortic valve replacement Past Surgical History avr Family History: FH: heart attack G8 FATHER FH: kidney cancer SON FH: lung cancer G8 MOTHER Social History smoker Allergies: Coded Allergies: Meperidine (Verified Allergy, Severe, 01/18/24) Home Meds Active Scripts Oxycodone W/ Acetaminophen (Oxycodone/Acetaminophen 10-300 mg) 1 Tab Tab, 1 TAB PO TID for 3 Days, #9 TAB Prov:CORA SINGH 05/11/24 Reported Medications Prednisone (Prednisone) 5 Mg Tab, 5 MG PO BID 01/23/24 Oxycodone W/ Acetaminophen (Percocet 5/325MG) 1 Tab Tb, 1 TAB PO PRN for MOD TO SEVERE PAIN, #120 TAB 01/18/24 Gabapentin (Gabapentin) 600 Mg Tab, 600 MG PO TID for neuropathy, MG 01/18/24 Pentoxifylline (TRENTAL ER TABLET) 400 Mg Tb, 400 MG PO BID for PVD, TAB 01/18/24 Pregabalin (Lyrica) 25 Mg Cap, 50 MG PO for NERVE PAIN, CAP 01/18/24 Meclizine Hcl (Meclizine Hcl) 25 Mg Tab, 25 MG PO BID for 30 Days, MG 01/18/24 Apixaban Base (ELIQUIS) 5 Mg Tab, 5 MG PO BID for S/P CARDIAC STENTS, TAB 01/01/24 Amlodipine Besylate (Amlodipine Besylate) 5 Mg Tab, 5 MG PO DAILY for HTN for 30 Days, MG 01/01/24 Lisinopril (Lisinopril) 5 Mg Tab, 5 MG PO BID for HTN, MG 12/07/23 Fluticasone Propionate (Nasal) (Flonase Allergy Relief) 50 Mcg/Act Spr, 2 SPRAY NA BID, SPRAY 12/07/23 Sertraline HCl (Sertraline Hydrochloride) 100 Mg Tab, 200 MG PO DAILY for DEPRESSION, TAB 12/07/23 Atorvastatin Calcium (ATORVASTATIN CALCIUM) 80 Mg Tab, 80 MG PO QPM for HIGH CHOLESTEROL, TAB 12/07/23 Metformin Hydrochloride (METFORMIN HCL ER) 500 Mg Tab, 500 MG PO DAILY for DIABETES, TAB 12/07/23 Current Medications Current Medications Medications (Trade) Dose Ordered Sig/Felipe Route PRN Reason Start Time Stop Time Status Last Admin Hydralazine HCl (Apresoline Injection) 10 mg Q6HPRN PRN IV SBP>160 11/17/24 20:45 Ondansetron HCl (Zofran) 4 mg Q6HPRN PRN IV NAUSEA / VOMITING 11/17/24 22:15 11/17/24 22:29 Morphine Sulfate 2 mg Q6HPRN PRN IV PAIN SCALE 7 THRU 10 11/17/24 22:15 11/18/24 02:00 DC 11/17/24 22:29 Acetaminophen/ Hydrocodone Bitart ([place] 5/325MG Tab) 1 tab Q6HPRN PRN PO PAIN SCALE 1 THRU 6 11/17/24 22:15 11/17/24 23:49 Acetaminophen (Tylenol Tablet) 650 mg Q6HPRN PRN PO PAIN SCALE 1-3 OR TEMP>100.4 11/17/24 22:15 Pantoprazole Sodium (Protonix) 40 mg DAILY IV 11/18/24 10:00 11/18/24 15:55 DC 11/18/24 10:22 Sodium Chloride 1,000 ml @ 75 mls/hr [id number] IV 11/17/24 22:15 11/18/24 15:55 DC 11/18/24 14:47 Ipratropium [place] (Atrovent Medneb) 0.5 mg Q4HPRN PRN NEB SHORTNESS OF BREATH 11/17/24 22:30 Amlodipine Besylate (Norvasc Tablet) 5 mg DAILY PO 11/18/24 10:00 11/18/24 15:55 DC 11/18/24 10:23 Lisinopril (Zestril Tablet) 2.5 mg BID PO 11/18/24 10:00 11/18/24 10:23 Nicardipine/ Sodium Chloride 200 ml @ 50 mls/hr Q4H IV 11/18/24 00:30 Morphine Sulfate 2 mg Q4HPRN PRN IV PAIN SCALE 7 THRU 10 11/18/24 02:00 11/18/24 12:57 Amlodipine Besylate (Norvasc Tablet) 10 mg DAILY PO 11/19/24 10:00 UNV Hydralazine HCl (Apresoline Tablet) 25 mg Q8HR PO 11/18/24 22:00 UNV Review of Systems All systems reviewed otherwise negative other than what is in the HPI. Vital Signs Vital Signs Date Time Temp Pulse Resp B/P (MAP) Pulse Ox O2 Delivery O2 Flow Rate FiO2 11/18/24 14:30 60 16 155/69 (97) 93 11/18/24 12:00 98.7 98.7 11/18/24 08:00 Nasal Cannula* 3 32 Physical Exam Head eyes ears nose and throat exam eyes are nonicteric conjunctiva is pink neck was supple no JVD no lymphadenopathy no carotid bruits lungs are clear to auscultation heart was regular rate and rhythm abdomen is soft with mild right lower quadrant tenderness and a pulsatile aorta. lower extremities palpable femoral pulses palpable pedal pulses bilaterally. Labs/Diagnostic Data Labs Test 11/18/24 12:46 11/18/24 03:45 11/17/24 12:54 6/30/25 12:02 Range/Units POC Glucose 104 70-106 mg/dl Sodium Level 141 136-145 mmol/L Potassium Level 4.0 3.5-5.1 mmol/L Chloride Level 111 H 98-107 mmol/L Carbon Dioxide Level 26 20-31 mmol/L Anion Gap 4 L 5-15 Blood Urea Nitrogen 16 9-23 mg/dL Creatinine 0.85 0.550-1.02 mg/dL Glomerular Filtration Rate Calc 71 >90 mL/min BUN/Creatinine Ratio 18.8 10.0-20.0 Serum Glucose 100 74-106 mg/dL Calcium Level 9.1 8.7-10.4 mg/dL Total Bilirubin 0.5 0.2-1.0 mg/dL Aspartate Amino Transferase (AST) 20 13-40 U/L Alanine Aminotransferase (ALT) 10 7-40 U/L Alkaline Phosphatase 96 46-116 U/L Total Protein 6.4 5.7-8.2 g/dL Albumin 4.0 3.2-4.8 g/dL White Blood Count 4.9 4.4-10.8 10^3/uL Red Blood Count 5.02 4.0-5.20 10^6/uL Hemoglobin 14.2 12.2-16.2 g/dL Hematocrit 42.4 36.0-46.0 % Mean Corpuscular Volume 84.4 80.0-100.0 fL Mean Corpuscular Hemoglobin 28.4 28.0-32.0 pg Mean Corpuscular Hemoglobin Concent 33.6 32.0-36.0 g/dL Red Cell Distribution Width 15.6 H 11.8-14.3 % Platelet Count 117 L 140-450 10^3/uL Mean Platelet Volume 8.1 6.9-10.8 fL Neutrophils (%) (Auto) 63.1 37.0-80.0 % Lymphocytes (%) (Auto) 22.6 10.0-50.0 % Monocytes (%) (Auto) 8.7 0.0-12.0 % Eosinophils (%) (Auto) 5.0 0.0-7.0 % Basophils (%) (Auto) 0.6 0.0-2.0 % Neutrophils # (Auto) 3.1 1.6-8.6 10 ^3/uL Lymphocytes # (Auto) 1.1 0.4-5.4 10 ^3/uL Monocytes # (Auto) 0.4 0-1.3 10 ^3/uL Eosinophils # (Auto) 0.2 0-0.8 10 ^3/uL Basophils # (Auto) 0 0-0.2 10 ^3/uL Nucleated Red Blood Cells 0.2 % Urine Color Light-yellow Yellow Urine Clarity Clear Clear Urine pH 5.0 5.0-9.0 Urine Specific [place] 1.014 1.001-1.035 Urine Protein Negative Negative Urine Ketones Negative Negative Urine Blood Negative Negative /uL Urine Nitrite Negative Negative Urine Bilirubin Negative Negative Urine Urobilinogen Normal Negative mg/dL Urine Leukocyte Esterase Trace Negative /uL Urine RBC 1 0 - 4 /hpf Urine Microscopic WBC 4 0-5 /HPF Urine Squamous Epithelial Cells None seen <5 /hpf Urine Bacteria None seen None Seen /hpf Urine Glucose Normal Normal mg/dL Microbiology Date/Time Source Procedure Growth Status 11/18/24 04:50 Nose MRSA Screen - Final Complete PROCEDURE(s): ABPLIV - CT AB PEL WITH IV CON ONLY REASON: pain ORDER NUMBER(s): [id number], ACCESSION NUMBER(s): [id number] CLINICAL HISTORY: pain TECHNIQUE: CT of the abdomen and pelvis was performed with intravenous contrast. 100 mL omnipaque 300 This exam was performed according to our departmental dose optimization program. Up-to-date CT equipment and radiation dose reduction techniques are utilized as appropriate. CTDIVol: 9.43 mGy DLP: 498.76 mGy-cm WID: COMPARISON: [facility] abdomen and pelvis from 05/11/2024 report from [facility] chest abdomen and pelvis dated 11/04/2024 FINDINGS: Lower Thorax: Partially imaged right breast implant with calcification of the capsule. Mild cardiomegaly without pericardial effusion. There is a transcatheter aortic valve in place. There are pacemaker leads terminating in the right atrial appendage and right ventricle. There is interlobular septal thickening in the lung bases. There is mild dependent atelectasis in the bilateral lower lobes, greater on the right. Liver and Biliary system: Normal-sized liver. There is peripheral hyperenhancement in the right lobe of the liver on series 5, image 56 which could be perfusional. Major portal veins are patent. The gallbladder is borderline dilated without definite wall thickening. Mild dilatation of the common bile duct measuring 9.4 mm on coronal image 35. Mild central intrahepatic bile duct dilatation. Unchanged tiny hypodensity in segment 2 of the liver likely a cyst. Spleen: Unremarkable. Adrenal Glands and Kidneys: Unchanged 2.6 cm left adrenal gland nodule on series 5, image 46. Unchanged 2.0 cm right adrenal gland nodule on series 5, image 48. Redemonstration of intermediate density in upper and lower pole left renal calices on series 5, images 58 and 73. There are multifocal bilateral renal cortical scarring. There are bilateral renal hypodensities some of which are too small to characterize, though may reflect cysts. No hydronephrosis. Pancreas and Retroperitoneum: Grossly unremarkable pancreas. No retroperitoneal lymphadenopathy. Aorta and Major Vessels: Multifocal aneurysm of the abdominal aorta again noted. This measures up to 5 cm AP on series 602, image 87 and 4.6 cm transverse on series 601, image 42. There is marked mixed atherosclerotic plaque in the aortoiliac vessels. There is a chronic short-segment dissections in the distal abdominal aorta. Bowel, Mesentery and Peritoneal space: Normal caliber small and large bowel. There is no free air or fluid collection. Pelvis: Urinary bladder is mildly distended. Prior hysterectomy. There is no pelvic lymphadenopathy. Abdominal wall and Osseous Structures: Mild left convexity scoliosis of the lumbar spine. Multilevel lower thoracic and lumbar spondylosis. Grade 1 anterolisthesis at L4-L5. No destructive osseous lesion. IMPRESSION: 1. Mild dilatation of the common bile duct. If there is clinical concern for biliary obstruction, MRCP could be pursued for further evaluation 2. Unchanged bilateral adrenal gland nodules. 3. Unchanged intermediate density in the left upper and lower pole renal calices with unchanged differential diagnosis. 4. Mild Cardiomegaly and interstitial pulmonary edema in the lung bases. 5. Marked mixed atherosclerotic plaque in the aortoiliac vessels. 6. 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 Multifocal aneurysm of the abdominal aorta measuring up to 5 cm AP and 4.6 cm transverse. 8. No bowel obstruction, fluid collection, or free air. Assessment complicated symptomatic AAA large diameter neck with significant thrombus of the proximal neck. The films reviewed with [place] representation. Patient will require higher level of care. Based on the complexity of this would recommend [facility]. Plan discussed with: Patient FELIPE MEYER Jr., MD Nov 18, 2024 16:33
[2024-11-19] VITALS (51 sets, daily range): BP systolic 113–195; BP diastolic 50–131; PULSE 60–70; RESP 11–20; TEMP 97.1–98.8; O2SAT 89–95
[2024-11-19] MEDS: hydrALAZINE HCL 20 MG/ML VL IV PRN ×2 (01:46→18:36)
[2024-11-19 05:17] LABS: Hematocrit 44.6 % (36.0-46.0); Hemoglobin 15.0 g/dL (12.2-16.2); Mean Corpuscular Hemoglobin 28.1 pg (28.0-32.0); Mean Corpuscular Volume 83.9 fL (80.0-100.0); Nucleated Red Blood Cells % 0.0 %
[2024-11-19 05:36] LABS: Alkaline Phosphatase 101 U/L (46-116); Anion Gap 6 (5-15); BUN/Creatinine Ratio 15.1 (10.0-20.0); Blood Urea Nitrogen 13 mg/dL (9-23); Calcium 9.9 mg/dL (8.7-10.4); Carbon Dioxide 27 mmol/L (20-31); Potassium 3.8 mmol/L (3.5-5.1); Sodium 141 mmol/L (136-145); Total Protein 6.5 g/dL (5.7-8.2)
[2024-11-19 05:37] LABS: Albumin 4.1 g/dL (3.2-4.8); Bilirubin, Total 0.5 mg/dL (0.2-1.0)
[2024-11-19 05:38] LABS: Alkaline Phosphatase 99.0 U/L (46-116); Bilirubin, Total 0.5 mg/dL (0.2-1.0); Total Protein 6.5 g/dL (5.7-8.2)
[2024-11-19 05:43] LABS: Alanine Aminotransferase 9 U/L (7-40); Alanine Aminotransferase 9.0 U/L (7-40); Chloride 108 mmol/L (98-107); Glucose 118 mg/dL (74-106)
[2024-11-19] MEDS: LISINOPRIL 5 MG TAB PO SCH (13:34)
--- NOTE | 2024-11-19 14:01 | DVHPN2 ---
Progress Note - Dictate Date Seen: Nov 19, 2024 Medical Necessity Reason Pt with a Central, PICC or Fol: No Subjective Patient is clinically stable. Abdominal pain is improving with pain meds. Blood pressure is stable. Evaluated by vascular surgery and recommending to transferred to higher level of care for further evaluation of AAA repair. vital signs Vital Sign Date Time Temp Pulse Resp B/P (MAP) Pulse Ox O2 Delivery O2 Flow Rate FiO2 11/19/24 13:34 198/98 11/19/24 12:50 61 14 11/19/24 12:30 94 11/19/24 12:00 97.5 97.5 11/19/24 08:00 Nasal Cannula* 3 32 Total Intake and Output 11/18/24 11/18/24 11/19/24 15:00 23:00 07:00 Intake Total 600 ml 240 ml 400 ml Balance 600 ml 240 ml 400 ml medications Current Medications Medications Dose Ordered Sig/Felipe Route Start Time Stop Time Status Last Admin Dose Admin Hydralazine HCl 10 mg Q6HPRN PRN IV 11/17/24 20:45 11/19/24 01:46 10 MG Ondansetron HCl 4 mg Q6HPRN PRN IV 11/17/24 22:15 11/17/24 22:29 4 MG Acetaminophen 650 mg Q6HPRN PRN PO 11/17/24 22:15 Ipratropium [place] 0.5 mg Q4HPRN PRN NEB 11/17/24 22:30 Cancel Morphine Sulfate 2 mg Q4HPRN PRN IV 11/18/24 02:00 11/19/24 12:20 2 MG Amlodipine Besylate 10 mg DAILY PO 11/19/24 10:00 11/19/24 09:33 10 MG Hydralazine HCl 50 mg BID PO 11/19/24 13:00 11/19/24 13:31 50 MG Lisinopril 20 mg BID PO 11/19/24 13:00 11/19/24 13:34 20 MG objective Anxious but alert awake oriented x3. HEENT neck supple no JVD. Heart regular rate and rhythm S1-S2. Lungs fair air movement no rales or wheezing. Abdomen soft nontender positive bowel sounds. Extremities no edema positive bowel sounds. laboratory and microbiology Laboratory Tests 11/19/24 04:55 Test 11/19/24 04:55 Range/Units Serum Glucose 118 H 74-106 mg/dL Assessment/Plan Per vascular surgery apparently patient has complex abdominal aortic aneurysm and he feels patient may need open AAA surgery versus complex endovascular stenting which are not available at this facility. Therefore vascular surgeon is recommending patient to be transferred to higher level of care where they can do these procedures. I have discussed this with the patient as well as [facility]. They will be started looking into accepting facilities. Meantime I will increase her blood pressure medications to keep blood pressure below 140/70. Adjust her pain medications. Encouraged physical therapy and activity. Downgrade and transferred telemetry floor given she is clinically stable. Problems(with codes): (1) Abdominal aneurysm (2) Generalized weakness (3) Intractable abdominal pain Dietary Evaluation Review Comments: 1) CCHO 60gm + cardiac diet 2) Refer CDE on DC Expected Outcomes/Goals: To meet >75% estimated needs Fu 3-5 days Plan discussed with: Patient, Other CAROL ADAMES MD Nov 19, 2024 14:01
[2024-11-19] MEDS: OXYCODONE W/ ACETAMINOPHEN 5/325MG TABLET PO PRN (20:38)
[2024-11-19] MEDS: SENNA 8.6 MG TAB PO SCH (23:01)
[2024-11-20] VITALS (42 sets, daily range): BP systolic 89–154; BP diastolic 47–81; PULSE 60–66; RESP 11–20; TEMP 97.8–98.7; O2SAT 89–97
[2024-11-20 05:07] LABS: Hematocrit 48.1 % (36.0-46.0); Hemoglobin 16.1 g/dL (12.2-16.2); Mean Corpuscular Hemoglobin 28.3 pg (28.0-32.0); Mean Corpuscular Volume 84.5 fL (80.0-100.0); Nucleated Red Blood Cells % 0.3 %
[2024-11-20 05:24] LABS: Potassium 3.8 mmol/L (3.5-5.1); Sodium 141 mmol/L (136-145)
[2024-11-20 05:25] LABS: Anion Gap 6 (5-15); Calcium 9.7 mg/dL (8.7-10.4); Carbon Dioxide 28 mmol/L (20-31)
[2024-11-20 05:30] LABS: BUN/Creatinine Ratio 17.9 (10.0-20.0); Blood Urea Nitrogen 15 mg/dL (9-23)
[2024-11-20 05:31] LABS: Magnesium 1.9 mg/dL (1.6-2.6)
[2024-11-20 05:33] LABS: Chloride 107 mmol/L (98-107); Glucose 113 mg/dL (74-106)
--- NOTE | 2024-11-20 15:03 | DVHPN2 ---
Progress Note - Dictate Date Seen: Nov 20, 2024 Medical Necessity Reason Pt with a Central, PICC or Fol: No Subjective Clinically remained stable. Pending transferred to higher level of care for AAA repair. Abdominal pain is improved. vital signs Vital Sign Date Time Temp Pulse Resp B/P (MAP) Pulse Ox O2 Delivery O2 Flow Rate FiO2 11/20/24 14:00 62 13 117/59 (78) 93 11/20/24 08:00 Nasal Cannula* 4 36 11/20/24 08:00 98.4 98.4 Total Intake and Output 11/19/24 11/19/24 11/20/24 15:00 23:00 07:00 Intake Total 600 ml 240 ml Balance 600 ml 240 ml medications Current Medications Medications Dose Ordered Sig/Felipe Route Start Time Stop Time Status Last Admin Dose Admin Ondansetron HCl 4 mg Q6HPRN PRN IV 11/17/24 22:15 11/17/24 22:29 4 MG Acetaminophen 650 mg Q6HPRN PRN PO 11/17/24 22:15 Ipratropium [place] 0.5 mg Q4HPRN PRN NEB 11/17/24 22:30 Cancel Morphine Sulfate 2 mg Q4HPRN PRN IV 11/18/24 02:00 11/20/24 13:15 2 MG Hydralazine HCl 50 mg BID PO 11/19/24 13:00 11/20/24 09:25 50 MG Lisinopril 20 mg BID PO 11/19/24 13:00 11/19/24 13:34 20 MG Oxycodone/ Acetaminophen 2 tab Q4HP PRN PO 11/19/24 14:00 11/20/24 11:21 2 TAB Sennosides 17.2 mg HS PO 11/19/24 22:00 11/19/24 23:01 17.2 MG Hydralazine HCl 10 mg Q4HPRN PRN IV 11/19/24 14:00 11/19/24 18:36 10 MG objective Comfortable in bed without distress. Heart regular rate and rhythm S1-S2. Lungs without rales wheezes. Abdomen nontender, soft positive bowel sounds. Extremities no edema. laboratory and microbiology Laboratory Tests 11/20/24 04:33 Test 11/20/24 04:33 Range/Units Serum Glucose 113 H 74-106 mg/dL Assessment/Plan Continue to adjust her blood pressure medications. Her blood pressure has significantly improved. Social Service or talking to multiple different hospitalist to see where she can be transferred. Meantime continue present management and she is downgraded to telemetry floor. Discussed with the patient's nurse regarding care plan. Problems(with codes): (1) Abdominal aneurysm (2) Hypertensive urgency (3) Generalized weakness (4) Intractable abdominal pain Dietary Evaluation Review Comments: 1) CCHO 60gm + cardiac diet 2) Refer CDE on DC Expected Outcomes/Goals: To meet >75% estimated needs Fu 3-5 days Plan discussed with: Patient, Other CAROL ADAMES MD Nov 20, 2024 15:03
[2024-11-21] VITALS (10 sets, daily range): BP systolic 103–149; BP diastolic 60–86; PULSE 56–65; RESP 16–18; TEMP 97.2–98.5; O2SAT 93–97
[2024-11-21] MEDS: ENOXAPARIN SOD 40 MG/0.4 ML SYRINGE SC ONE (10:25)
[2024-11-21] MEDS: HYDROmorphone HCL 2 MG/ML VL/or syr IV PRN (11:35)
[2024-11-21] MEDS: IOHEXOL 350 MG/ML 100ML IJ ONE (13:14)
--- NOTE | 2024-11-21 14:48 | DVH ---
Exam: CT CT AB PEL WITH IV CON ONLY History: AAA FOLLOW UP; LEAKING Comparison Study: CT CT AB PEL WITH IV CON ONLY on DOS: 11/17/24 TECHNIQUE: Multidetector CT of the abdomen and pelvis with IV contrast. Axial, coronal and sagittal m ultiplanar reformats were obtained from the axial data set by the technologist. Radiation Dose Information: CT Dose: CTDI volume is 8.99 mGy. Dose-length product is 437.32 mGy*cm FINDINGS: Bibasilar atelectasis. Borderline cardiomegaly. Liver, spleen, pancreas unremarkable. The gallbladder is mildly distended. Otherwise, unremarkable. 3.3 cm left adrenal nodule measuring up to 33 Hounsfield units with inadequately assessed 2.8 cm righ t adrenal nodule measuring up to 52 Hounsfield units. 1.7 cm left renal upper pole to interpolar region cysts. Subcentimeter hypodense bilateral renal lesi ons are noted that are too small to characterize . Slightly increased density o the upper and lower p ole renal calyces. No renal calculi bilaterally. Mild bilateral pelviectasis. Urinary bladder is mild ly distended. Otherwise unremarkable. Uterus and adnexa unremarkable. Moderate distention of the proximal stomach. Wall thickening of the distal stomach which may be from decompressed state. The small bowel loops unremarkable. Appendix is not definitely visualized. Moder ate to large amount of fecal material within the colon. Minimal mesenteric edema with moderate perire ctal edema. No evidence of intraperitoneal free air. Heavy atherosclerotic calcification of the aorta with calcified and noncalcified plaque. Aneurysmal d ilatation of the distal intrathoracic/ upper abdominal aorta measuring up to 4 cm. Multilobulated ane urysmal dilatation of the abdominal aorta measuring up to 3.2 cm in maximum diameter over the suprare nal region, 4.1 cm in maximum diameter at the level of the renal arteries, 4.8 cm over the region of the immediate infrarenal aorta with a 2 cm intramural thrombus and right-sided penetrating ulcer. The re is aneurysmal dilatation measuring up to 4.4 cm in maximum diameter over the distal intra-abdomina l aorta with a 1.7 cm in maximum thickness intramural thrombus. There is ectatic appearance of the mo st distal intra-abdominal aorta measuring up to 2.6 cm in maximum diameter. Mild dilatation of the right common iliac artery measuring up to 1.4 cm. Heavy atherosclerotic calcif ication of bilateral common iliac external and internal iliac arteries. Unchanged Chronic short segmental Dissection of the distal abdominal aorta near the aortic bifurcatio n extending into the right proximal common iliac artery. There is Heavy atherosclerotic calcification at the origin of the celiac and SMA causing moderate lum inal narrowing at the origin of the celiac and [id number] luminal narrowing of the origin of th e SMA. There is focal significant narrowing of the most proximal celiac. Normal contrast opacificati on of the remainder of the celiac and its branches. Mild atherosclerotic calcification of the remaind er of the SMA without hemodynamically significant stenosis. Mild atherosclerotic calcification of the origins of the left renal artery otherwise, the renal arteries are unremarkable. Duplicated bilatera l renal arteries. Mild narrowing of the origin of the PARESH. Otherwise, the PARESH is unremarkable. No significant lymphadenopathy. The soft tissues unremarkable. Partially visualized peripherally calcified right breast implant. Part ially imaged irregular left wrist soft tissue with no left breast implant noted. Diffuse demineraliza tion. No destructive osseous lesions are noted. IMPRESSION: Redemonstration of heavy atherosclerotic calcification of the aorta with multilobular aneurysmal dila tation of the distal intrathoracic and the abdominal aorta as detailed above largest measuring up to 4.8 cm in maximum diameter of the region of the immediate infrarenal aorta. Unchanged Chronic short segmental Dissection of the distal abdominal aorta near the aortic bifurcatio n extending into the right proximal common iliac artery. Moderate to large amount of fecal material within the colon with moderate perirectal edema. Correlat e for possible stercoral colitis. Wall thickening of the distal stomach which may be from decompressed state with gastritis not exclude d. Unchanged bilateral adrenal nodules. Unchanged slightly increased density within the left renal upper and lower pole calyces. Additional findings as above.
[2024-11-21 16:37] LABS: Hematocrit 48.6 % (36.0-46.0); Hemoglobin 16.3 g/dL (12.2-16.2); Mean Corpuscular Hemoglobin 28.3 pg (28.0-32.0); Mean Corpuscular Volume 84.6 fL (80.0-100.0); Nucleated Red Blood Cells % 0.2 %
[2024-11-21 16:43] LABS: Anion Gap 8 (5-15); Calcium 10.3 mg/dL (8.7-10.4); Carbon Dioxide 29 mmol/L (20-31); Chloride 104 mmol/L (98-107); Potassium 4.4 mmol/L (3.5-5.1); Sodium 141 mmol/L (136-145)
[2024-11-21 16:48] LABS: BUN/Creatinine Ratio 28.4 (10.0-20.0)
[2024-11-21 16:50] LABS: Blood Urea Nitrogen 27 mg/dL (9-23); Glucose 146 mg/dL (74-106)
--- NOTE | 2024-11-21 16:59 | DVHPN2 ---
Subjective Patient is complaining of minimal abdominal pain also complaining of constipation. 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 Medications Current Medications Medications Dose Ordered Sig/Felipe Route Start Time Stop Time Status Last Admin Dose Admin Ondansetron HCl 4 mg Q6HPRN PRN IV 11/17/24 22:15 11/21/24 14:07 4 MG Acetaminophen 650 mg Q6HPRN PRN PO 11/17/24 22:15 Ipratropium [place] 0.5 mg Q4HPRN PRN NEB 11/17/24 22:30 Cancel Hydralazine HCl 50 mg BID PO 11/19/24 13:00 11/21/24 10:20 50 MG Lisinopril 20 mg BID PO 11/19/24 13:00 11/21/24 10:20 20 MG Oxycodone/ Acetaminophen 2 tab Q4HP PRN PO 11/19/24 14:00 11/21/24 14:17 2 TAB Hydralazine HCl 10 mg Q4HPRN PRN IV 11/19/24 14:00 11/19/24 18:36 10 MG Enoxaparin Sodium 40 mg DAILY SC 11/22/24 10:00 Hydromorphone HCl 1 mg Q3HPRN PRN IV 11/21/24 11:30 11/21/24 11:35 1 MG Docusate Sodium 100 mg BID PO 11/21/24 22:00 Sennosides 17.2 mg HS PO 11/21/24 22:00 Laboratory Results Laboratory Tests 11/21/24 16:17 Chemistry Test 11/21/24 16:17 Calcium Level 10.3 mg/dL (8.7-10.4) Urinalysis Test 11/17/24 12:02 Urine Color Light-yellow (Yellow) Urine Clarity Clear (Clear) Urine pH 5.0 (5.0-9.0) Urine Specific [place] 1.014 (1.001-1.035) Urine Protein Negative (Negative) Urine Ketones Negative (Negative) Urine Blood Negative /uL (Negative) Urine Nitrite Negative (Negative) Urine Bilirubin Negative (Negative) Urine Urobilinogen Normal mg/dL (Negative) Urine Leukocyte Esterase Trace /uL (Negative) Urine RBC 1 /hpf (0 - 4) Urine Microscopic WBC 4 /HPF (0-5) Urine Squamous Epithelial Cells None seen /hpf (<5) Urine Bacteria None seen /hpf (None Seen) Urine Glucose Normal mg/dL (Normal) Microbiology Microbiology Date/Time Source Procedure Growth Status 11/18/24 04:50 Nose MRSA Screen - Final Complete Assessment/Plan Assessment/Plan This is a 74 yo female with known history of hypertension, DM, COPD, Bladder CA, Pacemaker, AVR at [facility] who presents with abdominal pain. Patient found to have 1. Intractable abdominal pain suspected secondary to symptomatic abdominal aortic aneurysm with a large diameter neck with significant thrombus in the proximal neck, vascular surgery recommended higher level of care 2. Hypertension better controlled 3. Diabetes mellitus type 2 4. Hypertension 5. History of aortic valve replacement 6. History of bladder cancer -pain meds as needed, control hypertension, social sciences research scientist consultation for higher level of care BLANCA -bowel regimen. Plan discussed with: Patient My Orders Orders - SIM KRUEGER MD Procedure Category Date Status Time Communication Order ORDERS 11/21/24 Transmitted 12:45 Ct Ab Pel With Iv Con CT 11/21/24 Resulted Only 13:05 Docusate Sodium PHA 11/21/24 In Process Capsule (Colace 22:00 Senna Pod Tablet PHA 11/21/24 In Process (Senokot Tablet) 22:00 Date of Service: Nov 21, 2024 Billing Provider: ISM KRUEGER MD Common Visit Codes: NOT BILLABLE SIM KRUEGER MD Nov 21, 2024 16:59
[2024-11-21] MEDS: DOCUSATE SOD 100 MG CAP PO SCH (22:09)
[2024-11-21] MEDS: SENNA 8.6 MG TAB PO SCH (22:09)
[2024-11-22] VITALS (8 sets, daily range): BP systolic 100–124; BP diastolic 58–74; PULSE 59–66; RESP 17–19; TEMP 97.1–98.3; O2SAT 85–95
[2024-11-22] MEDS: ENOXAPARIN SOD 40 MG/0.4 ML SYRINGE SC SCH (09:12)
--- NOTE | 2024-11-22 17:02 | DVHPN2 ---
Subjective Patient is complaining of minimal abdominal pain also complaining of constipation. 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 Medications Current Medications Medications Dose Ordered Sig/Felipe Route Start Time Stop Time Status Last Admin Dose Admin Ondansetron HCl 4 mg Q6HPRN PRN IV 11/17/24 22:15 11/21/24 14:07 4 MG Acetaminophen 650 mg Q6HPRN PRN PO 11/17/24 22:15 Ipratropium [place] 0.5 mg Q4HPRN PRN NEB 11/17/24 22:30 Cancel Lisinopril 20 mg BID PO 11/19/24 13:00 11/22/24 09:12 20 MG Oxycodone/ Acetaminophen 2 tab Q4HP PRN PO 11/19/24 14:00 11/22/24 09:11 2 TAB Hydralazine HCl 10 mg Q4HPRN PRN IV 11/19/24 14:00 11/19/24 18:36 10 MG Enoxaparin Sodium 40 mg DAILY SC 11/22/24 10:00 11/22/24 09:12 40 MG Hydromorphone HCl 1 mg Q3HPRN PRN IV 11/21/24 11:30 11/22/24 05:00 1 MG Docusate Sodium 100 mg BID PO 11/21/24 22:00 11/22/24 09:12 100 MG Sennosides 17.2 mg HS PO 11/21/24 22:00 11/21/24 22:09 17.2 MG Hydralazine HCl 50 mg TID PO 11/21/24 22:00 Laboratory Results Laboratory Tests 11/21/24 16:17 Urinalysis Test 11/17/24 12:02 Urine Color Light-yellow (Yellow) Urine Clarity Clear (Clear) Urine pH 5.0 (5.0-9.0) Urine Specific [place] 1.014 (1.001-1.035) Urine Protein Negative (Negative) Urine Ketones Negative (Negative) Urine Blood Negative /uL (Negative) Urine Nitrite Negative (Negative) Urine Bilirubin Negative (Negative) Urine Urobilinogen Normal mg/dL (Negative) Urine Leukocyte Esterase Trace /uL (Negative) Urine RBC 1 /hpf (0 - 4) Urine Microscopic WBC 4 /HPF (0-5) Urine Squamous Epithelial Cells None seen /hpf (<5) Urine Bacteria None seen /hpf (None Seen) Urine Glucose Normal mg/dL (Normal) Microbiology Microbiology Date/Time Source Procedure Growth Status 11/18/24 04:50 Nose MRSA Screen - Final Complete Assessment/Plan Assessment/Plan This is a 74 yo female with known history of hypertension, DM, COPD, Bladder CA, Pacemaker, AVR at [facility] who presents with abdominal pain. Patient found to have 1. Intractable abdominal pain suspected secondary to symptomatic abdominal aortic aneurysm with a large diameter neck with significant thrombus in the proximal neck, vascular surgery recommended higher level of care 2. Hypertension better controlled 3. Diabetes mellitus type 2 4. Constipation, improved 5. History of aortic valve replacement 6. History of urinary bladder cancer status post tumor resection 27 years ago, currently in remission -pain meds as needed, control hypertension, social work program coordinator consultation for higher level of care BLANCA -bowel regimen. health services manager consultation for higher level of care. Plan discussed with: Patient My Orders Orders - SIM KRUEGER MD Procedure Category Date Status Time Hydralazine Hcl PHA 11/21/24 In Process Tablet (Apresoline 22:00 Date of Service: Nov 22, 2024 Billing Provider: SIM KRUEGER MD Common Visit Codes: [id number] INP/OBS CARE(MOD), NOT BILLABLE SIM KRUEGER MD Nov 22, 2024 17:02
[2024-11-23] VITALS (8 sets, daily range): BP systolic 105–125; BP diastolic 59–74; PULSE 59–62; RESP 16–20; TEMP 97.8–98.6; O2SAT 89–98
--- NOTE | 2024-11-23 17:24 | DVHDS2 ---
Discharge Summary Date of Admission Nov 17, 2024 at 22:14 Date of Discharge: Nov 19, 2024 Labs/Diagnostic Data: Laboratory Results Test 11/21/24 16:17 11/20/24 04:33 11/19/24 04:55 11/18/24 16:59 White Blood Count 6.4 10^3/uL (4.4-10.8) Red Blood Count 5.74 10^6/uL (4.0-5.20) Hemoglobin 16.3 g/dL (12.2-16.2) Hematocrit 48.6 % (36.0-46.0) Mean Corpuscular Volume 84.6 fL (80.0-100.0) Mean Corpuscular Hemoglobin 28.3 pg (28.0-32.0) Mean Corpuscular Hemoglobin Concent 33.5 g/dL (32.0-36.0) Red Cell Distribution Width 15.6 % (11.8-14.3) Platelet Count 113 10^3/uL (140-450) Mean Platelet Volume 8.3 fL (6.9-10.8) Neutrophils (%) (Auto) 80.5 % (37.0-80.0) Lymphocytes (%) (Auto) 11.6 % (10.0-50.0) Monocytes (%) (Auto) 6.2 % (0.0-12.0) Eosinophils (%) (Auto) 1.4 % (0.0-7.0) Basophils (%) (Auto) 0.3 % (0.0-2.0) Neutrophils # (Auto) 5.1 10 ^3/uL (1.6-8.6) Lymphocytes # (Auto) 0.7 10 ^3/uL (0.4-5.4) Monocytes # (Auto) 0.4 10 ^3/uL (0-1.3) Eosinophils # (Auto) 0.1 10 ^3/uL (0-0.8) Basophils # (Auto) 0 10 ^3/uL (0-0.2) Nucleated Red Blood Cells 0.2 % Sodium Level 141 mmol/L (136-145) Potassium Level 4.4 mmol/L (3.5-5.1) Chloride Level 104 mmol/L (98-107) Carbon Dioxide Level 29 mmol/L (20-31) Anion Gap 8 (5-15) Blood Urea Nitrogen 27 mg/dL (9-23) Creatinine 0.95 mg/dL (0.550-1.02) Glomerular Filtration Rate Calc 62 mL/min (>90) BUN/Creatinine Ratio 28.4 (10.0-20.0) Serum Glucose 146 mg/dL (74-106) Calcium Level 10.3 mg/dL (8.7-10.4) Magnesium Level 1.9 mg/dL (1.6-2.6) Total Bilirubin 0.5 mg/dL (0.2-1.0) Aspartate Amino Transferase (AST) 16 U/L (13-40) Alanine Aminotransferase (ALT) 9 U/L (7-40) Alkaline Phosphatase 99 U/L (46-116) Total Protein 6.5 g/dL (5.7-8.2) Albumin 4.1 g/dL (3.2-4.8) Lipase 27 U/L (12-53) Test 11/18/24 12:46 11/17/24 12:02 POC Glucose 104 mg/dl (70-106) Urine Color Light-yellow (Yellow) Urine Clarity Clear (Clear) Urine pH 5.0 (5.0-9.0) Urine Specific [place] 1.014 (1.001-1.035) Urine Protein Negative (Negative) Urine Ketones Negative (Negative) Urine Blood Negative /uL (Negative) Urine Nitrite Negative (Negative) Urine Bilirubin Negative (Negative) Urine Urobilinogen Normal mg/dL (Negative) Urine Leukocyte Esterase Trace /uL (Negative) Urine RBC 1 /hpf (0 - 4) Urine Microscopic WBC 4 /HPF (0-5) Urine Squamous Epithelial Cells None seen /hpf (<5) Urine Bacteria None seen /hpf (None Seen) Urine Glucose Normal mg/dL (Normal) Other Laboratory Tests 11/21/24 16:17 Brief Hx & Hospital Course: This is a 74 yo female with known history of hypertension, DM, COPD, Bladder CA, Pacemaker, AVR at [facility] who presents with abdominal pain. Patient found to have intractable abdominal pain secondary to symptomatic abdominal aortic aneurysm with a large diameter neck with significant thrombus in the proximal neck. Patient was very by vascular surgery recommended to be higher level of care for vascular surgery intervention for abdominal aortic aneurysm. Patient does have known history of aortic valve replacement as well as previous history of urinary bladder cancer status post tumor resection 27 years ago currently in remission. Patient's constipation has been resolved. Patient was accepted at [facility] by hospitalist and vascular surgery but currently no bed is available. guest services associate has been working on arranging a bed. Patient was communicated with this in details she understand verbalized understanding and agreeable to plan. Condition at Discharge: Stable Final Diagnosis/Problems List This is a 74 yo female with known history of hypertension, DM, COPD, Bladder CA, Pacemaker, AVR at [facility] who presents with abdominal pain. Patient found to have 1. Intractable abdominal pain suspected secondary to symptomatic abdominal aortic aneurysm with a large diameter neck with significant thrombus in the proximal neck, vascular surgery recommended higher level of care 2. Hypertension better controlled 3. Diabetes mellitus type 2 4. Constipation, improved 5. History of aortic valve replacement 6. History of urinary bladder cancer status post tumor resection 27 years ago, currently in remission Discharge Disposition: Acute Care Facility SNF Discharge Will this Physician continue t: No Discharge Instruct/Medications Diet: Consistent carbohydrate, Cardiac 2g Na,low cholest Activity: Light activity Scheduled Amlodipine Besylate (Amlodipine Besylate), 5 MG PO DAILY, (Reported) Apixaban Base (Eliquis), 5 MG PO BID, (Reported) Atorvastatin Calcium (Atorvastatin Calcium), 80 MG PO QPM, (Reported) Fluticasone Propionate (Nasal) (Flonase Allergy Relief), 2 SPRAY NA BID, (Reported) Gabapentin (Gabapentin), 600 MG PO TID, (Reported) Lisinopril (Lisinopril), 5 MG PO BID, (Reported) Meclizine Hcl (Meclizine Hcl), 25 MG PO BID, (Reported) Metformin Hydrochloride (Metformin Hcl Er), 500 MG PO DAILY, (Reported) Oxycodone W/ Acetaminophen (Percocet 5/325MG), 1 TAB PO PRN, (Reported) Oxycodone W/ Acetaminophen (Oxycodone/Acetaminophen 10-300 mg), 1 TAB PO TID Pentoxifylline (Trental Er Tablet), 400 MG PO BID, (Reported) Prednisone (Prednisone), 5 MG PO BID, (Reported) Sertraline HCl (Sertraline Hydrochloride), 200 MG PO DAILY, (Reported) Miscellaneous Medications Pregabalin (Lyrica), 50 MG PO, (Reported) Discharge Statement: "Patient was advised to return to the ER or call 911 if any headaches, dizziness, shortness of breath, chest pain, abdominal pain, bleeding, fevers, or worsening of medical condition. Patient was counseled about treatment plan, medications, possible side effects, patientverbalized understanding. All questions were answered to the best of my ability. This discharge took greater then 30 minutes in planning, reviewing documentation, counseling the patient, and discussing with other team members." ASSESSMENT ASSESSMENT Assessment AAA with abdominal pain Date of Service: Nov 23, 2024 Billing Provider: SIM KRUEGER MD Common Visit Codes: NOT BILLABLE SIM KRUEGER MD Nov 23, 2024 17:24
[2024-11-24] VITALS (7 sets, daily range): BP systolic 103–143; BP diastolic 60–94; PULSE 57–61; RESP 17–20; TEMP 97.5–98.1; O2SAT 92–99
[2024-11-24 07:25] LABS: Hematocrit 45.6 % (36.0-46.0); Hemoglobin 15.4 g/dL (12.2-16.2); Mean Corpuscular Hemoglobin 28.5 pg (28.0-32.0); Mean Corpuscular Volume 84.6 fL (80.0-100.0); Nucleated Red Blood Cells % 0.2 %
[2024-11-24 07:30] LABS: Anion Gap 7 (5-15); Carbon Dioxide 28 mmol/L (20-31); Potassium 4.2 mmol/L (3.5-5.1); Sodium 143 mmol/L (136-145)
[2024-11-24 07:31] LABS: Calcium 10.3 mg/dL (8.7-10.4)
[2024-11-24 07:36] LABS: BUN/Creatinine Ratio 32.3 (10.0-20.0); Blood Urea Nitrogen 32 mg/dL (9-23); Chloride 108 mmol/L (98-107); Glucose 109 mg/dL (74-106); Magnesium 2.0 mg/dL (1.6-2.6)
[2024-11-24] MEDS: LACTULOSE 20Gm/30ML SOLN PO PRN (16:52)
[2024-11-25] VITALS (8 sets, daily range): BP systolic 100–131; BP diastolic 59–93; PULSE 60–91; RESP 15–19; TEMP 97.4–98.3; O2SAT 90–99
--- NOTE | 2024-11-25 13:32 | DVHINCON2 ---
Date of service: Nov 25, 2024 Referring Physician Hospitalist Reason for Consultation Acute urinary retention History of Present Illness 74 y.o female with PMHx of HTN, DM, COPD, and bladder cancer status post TURBT in 1996 with subsequent follow-ups by a urologist in different location. She is now admitted to [facility] for a chief complaint of ongoing diffused abdominal pain radiating to her pelvic that started months ago. She is unable to urinate and catheter was placed today. She has also reports constipation x1 week. Patient is currently awaiting to be transferred to [facility] for the management of her aortic aneurysm. She admits to tobacco use, cut down to 3 cigarettes per day and denies any substance or alcohol use. Chief Complaint: Abdominal Pain Primary Care Provider: nunu Reviewed Notes: Nurses Notes, Medications, Allergies Allergies: Coded Allergies: Meperidine (Verified Allergy, Severe, 01/18/24) Home Meds Active Scripts Oxycodone W/ Acetaminophen (Oxycodone/Acetaminophen 10-300 mg) 1 Tab Tab, 1 TAB PO TID for 3 Days, #9 TAB Prov:CORA SINGH 05/11/24 Reported Medications Prednisone (Prednisone) 5 Mg Tab, 5 MG PO BID 01/23/24 Oxycodone W/ Acetaminophen (Percocet 5/325MG) 1 Tab Tb, 1 TAB PO PRN for MOD TO SEVERE PAIN, #120 TAB 01/18/24 Gabapentin (Gabapentin) 600 Mg Tab, 600 MG PO TID for neuropathy, MG 01/18/24 Pentoxifylline (TRENTAL ER TABLET) 400 Mg Tb, 400 MG PO BID for PVD, TAB 01/18/24 Pregabalin (Lyrica) 25 Mg Cap, 50 MG PO for NERVE PAIN, CAP 01/18/24 Meclizine Hcl (Meclizine Hcl) 25 Mg Tab, 25 MG PO BID for 30 Days, MG 01/18/24 Apixaban Base (ELIQUIS) 5 Mg Tab, 5 MG PO BID for S/P CARDIAC STENTS, TAB 01/01/24 Amlodipine Besylate (Amlodipine Besylate) 5 Mg Tab, 5 MG PO DAILY for HTN for 30 Days, MG 01/01/24 Lisinopril (Lisinopril) 5 Mg Tab, 5 MG PO BID for HTN, MG 12/07/23 Fluticasone Propionate (Nasal) (Flonase Allergy Relief) 50 Mcg/Act Spr, 2 SPRAY NA BID, SPRAY 12/07/23 Sertraline HCl (Sertraline Hydrochloride) 100 Mg Tab, 200 MG PO DAILY for DEPRESSION, TAB 12/07/23 Atorvastatin Calcium (ATORVASTATIN CALCIUM) 80 Mg Tab, 80 MG PO QPM for HIGH CHOLESTEROL, TAB 12/07/23 Metformin Hydrochloride (METFORMIN HCL ER) 500 Mg Tab, 500 MG PO DAILY for DIABETES, TAB 12/07/23 Information Source: Patient Mode of Arrival: Ambulatory Timing: Months Duration: Since onset Quality: Sharp Vomitus: None Stool: Normal Severity: Moderate Recent: None Recent Hx of: None Pain Location: Diffuse Modifying Factors: Nothing Associated sign and symptoms: Abdominal Pain Past Medical History CAD, COPD, DM, High Lipids, HTN Past Surgical History Appendectomy, Hysterectomy TURBT 1996 Aortic valve replacement in April 2024 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 History: Denies all TUBE SPLICER Hx Family History: FH: heart attack G8 FATHER FH: kidney cancer SON FH: lung cancer G8 MOTHER Allergies: Coded Allergies: Meperidine (Verified Allergy, Severe, 01/18/24) Home Meds Active Scripts Oxycodone W/ Acetaminophen (Oxycodone/Acetaminophen 10-300 mg) 1 Tab Tab, 1 TAB PO TID for 3 Days, #9 TAB Prov:CORA SINGH 05/11/24 Reported Medications Prednisone (Prednisone) 5 Mg Tab, 5 MG PO BID 01/23/24 Oxycodone W/ Acetaminophen (Percocet 5/325MG) 1 Tab Tb, 1 TAB PO PRN for MOD TO SEVERE PAIN, #120 TAB 01/18/24 Gabapentin (Gabapentin) 600 Mg Tab, 600 MG PO TID for neuropathy, MG 01/18/24 Pentoxifylline (TRENTAL ER TABLET) 400 Mg Tb, 400 MG PO BID for PVD, TAB 01/18/24 Pregabalin (Lyrica) 25 Mg Cap, 50 MG PO for NERVE PAIN, CAP 01/18/24 Meclizine Hcl (Meclizine Hcl) 25 Mg Tab, 25 MG PO BID for 30 Days, MG 01/18/24 Apixaban Base (ELIQUIS) 5 Mg Tab, 5 MG PO BID for S/P CARDIAC STENTS, TAB 01/01/24 Amlodipine Besylate (Amlodipine Besylate) 5 Mg Tab, 5 MG PO DAILY for HTN for 30 Days, MG 01/01/24 Lisinopril (Lisinopril) 5 Mg Tab, 5 MG PO BID for HTN, MG 12/07/23 Fluticasone Propionate (Nasal) (Flonase Allergy Relief) 50 Mcg/Act Spr, 2 SPRAY NA BID, SPRAY 12/07/23 Sertraline HCl (Sertraline Hydrochloride) 100 Mg Tab, 200 MG PO DAILY for DEPRESSION, TAB 12/07/23 Atorvastatin Calcium (ATORVASTATIN CALCIUM) 80 Mg Tab, 80 MG PO QPM for HIGH CHOLESTEROL, TAB 12/07/23 Metformin Hydrochloride (METFORMIN HCL ER) 500 Mg Tab, 500 MG PO DAILY for DIABETES, TAB 12/07/23 Review of Systems Constitutional: denies: chills, diaphoresis, fatigue, fever, malaise, sweats, weakness, others EENTM: denies: blurred vision, double vision, ear bleeding, ear discharge, ear drainage, ear pain, ear ringing, eye pain, eye redness, hearing loss, mouth pain, mouth swelling, nasal discharge, nose bleeding, nose congestion, nose pain, photophobia, tearing, throat pain, throat swelling, voice changes, others Respiratory: denies: cough, hemoptysis, orthopnea, SOB at rest, shortness of breath, SOB with excertion, stridor, wheezing, others Cardiovascular: denies: chest pain, dizzy spells, diaphoresis, Dyspnea on exertion, edema, irregular heart beat, left arm pain, lightheadedness, palpitat ions, PND, syncope, others Gastrointestinal: reports: abdominal pain; denies: abdomen distended, blood streaked bowels, constipated, diarrhea, dysphagia, difficulty swallowing, hematemesis, melena, nausea, poor appetite, poor fluid intake, rectal bleeding, rectal pain, vomiting, others Genitourinary: denies: abnormal vagina bleeding, burning, dyspareunia, dysuria, flank pain, frequency, hematuria, incontinence, pain, , vagina discharge , urgency, others Neurological: denies: dizziness, fainting, headache, left sided numbness, left sided weakness, numbness, paresthesia, pre-existing deficit, right sided numbness, right sided weakness, seizure, speech problems, tingling, tremors, weakness, others Musculoskeletal: denies: back pain, gout, joint pain, joint swelling, muscle pain, muscle stiffness, neck pain, others Integumetry: denies: bruises, change in color, change in hair/nails, dryness, laceration, lesions, lumps, rash, wounds, others Allergic/Immunocompromised: denies: Difficulty Healing, Frequent Infections, Hives, Itching, others Hematologic/Lymphatic: denies: anemia, blood clots, easy bleeding, easy bruising, swollen glands, others Endocrine: denies: excessive hunger, excessive sweating, excessive thirst, excessive urination, flushing, intolerance to cold, intolerance to heat, unexplained weight gain, unexplained weight loss, others Psychiatric: denies: anxiety, bipolar disorder, depression, hopeless, panic di sorder, schizophrenia, sleepless, suicidal, others All Other Systems: Reviewed and Negative Vital Signs Vital Signs Date Time Temp Pulse Resp B/P (MAP) Pulse Ox O2 Delivery O2 Flow Rate FiO2 11/25/24 11:19 60 16 130/65 11/25/24 08:30 98.0 99 98.0 11/25/24 08:00 Nasal Cannula* 2 28 Physical Exam General Appearance: Moderate Distress HEENT: Normal ENT Inspection, Pharynx Normal, TMs Normal Neck: Full Range of Motion, Non-Tender, Normal, Normal Inspection Respiratory: Chest Non-Tender, Lungs Clear, No Accessory Muscle Use, No Respiratory Distress, Normal Breath Sounds Cardiovascular: No Edema, No JVD, No Murmur, No Gallop, Normal Peripheral Pulses, Regular Rate/Rhythm Breast Exam: Deferred Gastrointestinal: Diffuse, No Organomegaly, No Pulsatile Mass, Normal Bowel Sounds, Soft, Tenderness Genitalia: Zamora catheter in place with clear yellow urine noted Rectal: Deferred Extremities: No calf tenderness, Normal capillary refill, Normal inspection, Normal range of motion, Non-tender, No pedal edema Musculoskeletal : Apperance: Normal Neurologic: Alert, special projects coordinator II-XII nml as Tested, No Motor Deficits, Normal Affect, Normal Mood, No Sensory Deficits Cerebellar Function: Normal Reflexes: Normal Skin: Dry, Normal Color, Warm Lymphatic: No Adenopathy Labs/Diagnostic Data Labs Test 11/24/24 05:57 11/19/24 04:55 11/18/24 16:59 11/18/24 12:46 Range/Units White Blood Count 5.1 4.4-10.8 10^3/uL Red Blood Count 5.40 H 4.0-5.20 10^6/uL Hemoglobin 15.4 12.2-16.2 g/dL Hematocrit 45.6 36.0-46.0 % Mean Corpuscular Volume 84.6 80.0-100.0 fL Mean Corpuscular Hemoglobin 28.5 28.0-32.0 pg Mean Corpuscular Hemoglobin Concent 33.7 32.0-36.0 g/dL Red Cell Distribution Width 15.2 H 11.8-14.3 % Platelet Count 114 L 140-450 10^3/uL Mean Platelet Volume 8.5 6.9-10.8 fL Neutrophils (%) (Auto) 72.4 37.0-80.0 % Lymphocytes (%) (Auto) 14.8 10.0-50.0 % Monocytes (%) (Auto) 9.6 0.0-12.0 % Eosinophils (%) (Auto) 3.0 0.0-7.0 % Basophils (%) (Auto) 0.2 0.0-2.0 % Neutrophils # (Auto) 3.7 1.6-8.6 10 ^3/uL Lymphocytes # (Auto) 0.8 0.4-5.4 10 ^3/uL Monocytes # (Auto) 0.5 0-1.3 10 ^3/uL Eosinophils # (Auto) 0.2 0-0.8 10 ^3/uL Basophils # (Auto) 0 0-0.2 10 ^3/uL Nucleated Red Blood Cells 0.2 % Sodium Level 143 136-145 mmol/L Potassium Level 4.2 3.5-5.1 mmol/L Chloride Level 108 H 98-107 mmol/L Carbon Dioxide Level 28 20-31 mmol/L Anion Gap 7 5-15 Blood Urea Nitrogen 32 H 9-23 mg/dL Creatinine 0.99 0.550-1.02 mg/dL Glomerular Filtration Rate Calc 59 >90 mL/min BUN/Creatinine Ratio 32.3 H 10.0-20.0 Serum Glucose 109 H 74-106 mg/dL Calcium Level 10.3 8.7-10.4 mg/dL Magnesium Level 2.0 1.6-2.6 mg/dL Total Bilirubin 0.5 0.2-1.0 mg/dL Aspartate Amino Transferase (AST) 16 13-40 U/L Alanine Aminotransferase (ALT) 9 7-40 U/L Alkaline Phosphatase 99 46-116 U/L Total Protein 6.5 5.7-8.2 g/dL Albumin 4.1 3.2-4.8 g/dL Lipase 27 12-53 U/L POC Glucose 104 70-106 mg/dl Test 11/17/24 12:02 Range/Units Urine Color Light-yellow Yellow Urine Clarity Clear Clear Urine pH 5.0 5.0-9.0 Urine Specific [place] 1.014 1.001-1.035 Urine Protein Negative Negative Urine Ketones Negative Negative Urine Blood Negative Negative /uL Urine Nitrite Negative Negative Urine Bilirubin Negative Negative Urine Urobilinogen Normal Negative mg/dL Urine Leukocyte Esterase Trace Negative /uL Urine RBC 1 0 - 4 /hpf Urine Microscopic WBC 4 0-5 /HPF Urine Squamous Epithelial Cells None seen <5 /hpf Urine Bacteria None seen None Seen /hpf Urine Glucose Normal Normal mg/dL Microbiology Date/Time Source Procedure Growth Status 11/18/24 04:50 Nose MRSA Screen - Final Complete Assessment Acute urinary retention History of bladder cancer Constipation Plan/Recommendation Keep Zamora to gravity drainage Outpatient cystoscopy and urodynamics to be arranged Magcitrate for BM Plan discussed with: Patient, Other NELDA PINTO MD Nov 25, 2024 13:32
[2024-11-25 13:50] LABS: Potassium 4.0 mmol/L (3.5-5.1); Sodium 141 mmol/L (136-145)
[2024-11-25 13:51] LABS: Anion Gap 6 (5-15); Calcium 10.3 mg/dL (8.7-10.4); Carbon Dioxide 28 mmol/L (20-31)
[2024-11-25 13:55] LABS: Chloride 107 mmol/L (98-107)
[2024-11-25 13:56] LABS: BUN/Creatinine Ratio 30.2 (10.0-20.0)
[2024-11-25 13:58] LABS: Blood Urea Nitrogen 29 mg/dL (9-23); Glucose 135 mg/dL (74-106)
--- NOTE | 2024-11-25 18:52 | DVHPN2 ---
Subjective Patient denies any complaints, currently wondering when she has been transferred to higher level of care currently director of social work working on it. 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 Medications Current Medications Medications Dose Ordered Sig/Felipe Route Start Time Stop Time Status Last Admin Dose Admin Ondansetron HCl 4 mg Q6HPRN PRN IV 11/17/24 22:15 11/25/24 10:48 4 MG Acetaminophen 650 mg Q6HPRN PRN PO 11/17/24 22:15 Ipratropium [place] 0.5 mg Q4HPRN PRN NEB 11/17/24 22:30 Cancel Lisinopril 20 mg BID PO 11/19/24 13:00 11/24/24 22:13 20 MG Oxycodone/ Acetaminophen 2 tab Q4HP PRN PO 11/19/24 14:00 11/25/24 15:10 2 TAB Hydralazine HCl 10 mg Q4HPRN PRN IV 11/19/24 14:00 11/19/24 18:36 10 MG Enoxaparin Sodium 40 mg DAILY SC 11/22/24 10:00 11/25/24 09:11 40 MG Hydromorphone HCl 1 mg Q3HPRN PRN IV 11/21/24 11:30 11/25/24 10:49 1 MG Docusate Sodium 100 mg BID PO 11/21/24 22:00 11/25/24 09:11 100 MG Sennosides 17.2 mg HS PO 11/21/24 22:00 11/24/24 22:08 17.2 MG Hydralazine HCl 50 mg TID PO 11/21/24 22:00 11/25/24 15:11 50 MG Lactulose 30 ml Q6HPRN PRN PO 11/24/24 12:30 11/25/24 06:14 30 ML Laboratory Results Laboratory Tests 11/24/24 05:57 11/25/24 13:29 Chemistry Test 11/25/24 13:29 Calcium Level 10.3 mg/dL (8.7-10.4) Urinalysis Test 11/17/24 12:02 Urine Color Light-yellow (Yellow) Urine Clarity Clear (Clear) Urine pH 5.0 (5.0-9.0) Urine Specific [place] 1.014 (1.001-1.035) Urine Protein Negative (Negative) Urine Ketones Negative (Negative) Urine Blood Negative /uL (Negative) Urine Nitrite Negative (Negative) Urine Bilirubin Negative (Negative) Urine Urobilinogen Normal mg/dL (Negative) Urine Leukocyte Esterase Trace /uL (Negative) Urine RBC 1 /hpf (0 - 4) Urine Microscopic WBC 4 /HPF (0-5) Urine Squamous Epithelial Cells None seen /hpf (<5) Urine Bacteria None seen /hpf (None Seen) Urine Glucose Normal mg/dL (Normal) Microbiology Microbiology Date/Time Source Procedure Growth Status 11/18/24 04:50 Nose MRSA Screen - Final Complete Assessment/Plan Assessment/Plan This is a 74 yo female with known history of hypertension, DM, COPD, Bladder CA, Pacemaker, AVR at [facility] who presents with abdominal pain. Patient found to have 1. Intractable abdominal pain suspected secondary to symptomatic abdominal aortic aneurysm with a large diameter neck with significant thrombus in the proximal neck, vascular surgery recommended higher level of care 2. Hypertension better controlled 3. Diabetes mellitus type 2 4. Constipation, improved 5. History of aortic valve replacement 6. History of urinary bladder cancer status post tumor resection 27 years ago, currently in remission -pain meds as needed, control hypertension, vp digital marketing social media and crm consultation for higher level of care BLANCA -bowel regimen. medical staff services manager consultation for higher level of care. Plan discussed with: Patient My Orders Orders - SIM KRUEGER MD Procedure Category Date Status Time Insert Zamora Catheter LUCIEN 11/25/24 In Process 12:14 * Urology Consult CONS 11/25/24 Transmitted 12:14 Date of Service: Nov 24, 2024 Billing Provider: SIM KRUEGER MD Common Visit Codes: NOT BILLABLE SIM KRUEGER MD Nov 25, 2024 18:52
--- NOTE | 2024-11-25 18:53 | DVHPN2 ---
Subjective Patient denies any complaints, currently wondering when she has been transferred to higher level of care currently social worker assistant working on it. 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 Medications Current Medications Medications Dose Ordered Sig/Felipe Route Start Time Stop Time Status Last Admin Dose Admin Ondansetron HCl 4 mg Q6HPRN PRN IV 11/17/24 22:15 11/25/24 10:48 4 MG Acetaminophen 650 mg Q6HPRN PRN PO 11/17/24 22:15 Ipratropium [place] 0.5 mg Q4HPRN PRN NEB 11/17/24 22:30 Cancel Lisinopril 20 mg BID PO 11/19/24 13:00 11/24/24 22:13 20 MG Oxycodone/ Acetaminophen 2 tab Q4HP PRN PO 11/19/24 14:00 11/25/24 15:10 2 TAB Hydralazine HCl 10 mg Q4HPRN PRN IV 11/19/24 14:00 11/19/24 18:36 10 MG Enoxaparin Sodium 40 mg DAILY SC 11/22/24 10:00 11/25/24 09:11 40 MG Hydromorphone HCl 1 mg Q3HPRN PRN IV 11/21/24 11:30 11/25/24 10:49 1 MG Docusate Sodium 100 mg BID PO 11/21/24 22:00 11/25/24 09:11 100 MG Sennosides 17.2 mg HS PO 11/21/24 22:00 11/24/24 22:08 17.2 MG Hydralazine HCl 50 mg TID PO 11/21/24 22:00 11/25/24 15:11 50 MG Lactulose 30 ml Q6HPRN PRN PO 11/24/24 12:30 11/25/24 06:14 30 ML Laboratory Results Laboratory Tests 11/24/24 05:57 11/25/24 13:29 Chemistry Test 11/25/24 13:29 Calcium Level 10.3 mg/dL (8.7-10.4) Urinalysis Test 11/17/24 12:02 Urine Color Light-yellow (Yellow) Urine Clarity Clear (Clear) Urine pH 5.0 (5.0-9.0) Urine Specific [place] 1.014 (1.001-1.035) Urine Protein Negative (Negative) Urine Ketones Negative (Negative) Urine Blood Negative /uL (Negative) Urine Nitrite Negative (Negative) Urine Bilirubin Negative (Negative) Urine Urobilinogen Normal mg/dL (Negative) Urine Leukocyte Esterase Trace /uL (Negative) Urine RBC 1 /hpf (0 - 4) Urine Microscopic WBC 4 /HPF (0-5) Urine Squamous Epithelial Cells None seen /hpf (<5) Urine Bacteria None seen /hpf (None Seen) Urine Glucose Normal mg/dL (Normal) Microbiology Microbiology Date/Time Source Procedure Growth Status 11/18/24 04:50 Nose MRSA Screen - Final Complete Assessment/Plan Assessment/Plan This is a 74 yo female with known history of hypertension, DM, COPD, Bladder CA, Pacemaker, AVR at [facility] who presents with abdominal pain. Patient found to have 1. Intractable abdominal pain suspected secondary to symptomatic abdominal aortic aneurysm with a large diameter neck with significant thrombus in the proximal neck, vascular surgery recommended higher level of care 2. Hypertension better controlled 3. Diabetes mellitus type 2 4. Constipation, improved 5. History of aortic valve replacement 6. History of urinary bladder cancer status post tumor resection 27 years ago, currently in remission -pain meds as needed, control hypertension, licensed clinical social worker consultation for higher level of care BLANCA -bowel regimen. family services manager consultation for higher level of care. Plan discussed with: Patient My Orders Orders - SIM KRUEGER MD Procedure Category Date Status Time Insert Zamora Catheter LUCIEN 11/25/24 In Process 12:14 * Urology Consult CONS 11/25/24 Transmitted 12:14 Date of Service: Nov 25, 2024 Billing Provider: SIM KRUEGER MD Common Visit Codes: NOT BILLABLE SIM KRUEGER MD Nov 25, 2024 18:53
[2024-11-26 01:00] VITALS: BP 109/50; PULSE 63; RESP 14; TEMP 98; O2SAT 93
[2024-11-26 05:00] VITALS: BP 116/66; PULSE 61; RESP 15; TEMP 97.7; O2SAT 98
[2024-11-26 08:00] VITALS: PULSE 60; O2SAT 96
[2024-11-26 09:31] VITALS: BP 109/59; PULSE 61; RESP 18; TEMP 98.7; O2SAT 99
[2024-11-26] MEDS ORDERED: POLYETHYLENE GLYCOL 17 GM PWDR PO ONE (12:52)
[2024-11-26 13:00] VITALS: BP 128/71; PULSE 63; RESP 18; TEMP 98; O2SAT 97
[2024-11-26 16:44] VITALS: BP 146/96; PULSE 63; RESP 18; TEMP 98.2; O2SAT 96
--- NOTE | 2024-11-26 17:01 | DVHDS2 ---
Discharge Summary Date of Admission Nov 17, 2024 at 22:14 Date of Discharge: Nov 26, 2024 Labs/Diagnostic Data: Laboratory Results Test 11/25/24 13:29 11/24/24 05:57 11/19/24 04:55 11/18/24 16:59 Sodium Level 141 mmol/L (136-145) Potassium Level 4.0 mmol/L (3.5-5.1) Chloride Level 107 mmol/L (98-107) Carbon Dioxide Level 28 mmol/L (20-31) Anion Gap 6 (5-15) Blood Urea Nitrogen 29 mg/dL (9-23) Creatinine 0.96 mg/dL (0.550-1.02) Glomerular Filtration Rate Calc 61 mL/min (>90) BUN/Creatinine Ratio 30.2 (10.0-20.0) Serum Glucose 135 mg/dL (74-106) Calcium Level 10.3 mg/dL (8.7-10.4) White Blood Count 5.1 10^3/uL (4.4-10.8) Red Blood Count 5.40 10^6/uL (4.0-5.20) Hemoglobin 15.4 g/dL (12.2-16.2) Hematocrit 45.6 % (36.0-46.0) Mean Corpuscular Volume 84.6 fL (80.0-100.0) Mean Corpuscular Hemoglobin 28.5 pg (28.0-32.0) Mean Corpuscular Hemoglobin Concent 33.7 g/dL (32.0-36.0) Red Cell Distribution Width 15.2 % (11.8-14.3) Platelet Count 114 10^3/uL (140-450) Mean Platelet Volume 8.5 fL (6.9-10.8) Neutrophils (%) (Auto) 72.4 % (37.0-80.0) Lymphocytes (%) (Auto) 14.8 % (10.0-50.0) Monocytes (%) (Auto) 9.6 % (0.0-12.0) Eosinophils (%) (Auto) 3.0 % (0.0-7.0) Basophils (%) (Auto) 0.2 % (0.0-2.0) Neutrophils # (Auto) 3.7 10 ^3/uL (1.6-8.6) Lymphocytes # (Auto) 0.8 10 ^3/uL (0.4-5.4) Monocytes # (Auto) 0.5 10 ^3/uL (0-1.3) Eosinophils # (Auto) 0.2 10 ^3/uL (0-0.8) Basophils # (Auto) 0 10 ^3/uL (0-0.2) Nucleated Red Blood Cells 0.2 % Magnesium Level 2.0 mg/dL (1.6-2.6) Total Bilirubin 0.5 mg/dL (0.2-1.0) Aspartate Amino Transferase (AST) 16 U/L (13-40) Alanine Aminotransferase (ALT) 9 U/L (7-40) Alkaline Phosphatase 99 U/L (46-116) Total Protein 6.5 g/dL (5.7-8.2) Albumin 4.1 g/dL (3.2-4.8) Lipase 27 U/L (12-53) Test 11/18/24 12:46 11/17/24 12:02 POC Glucose 104 mg/dl (70-106) Urine Color Light-yellow (Yellow) Urine Clarity Clear (Clear) Urine pH 5.0 (5.0-9.0) Urine Specific [place] 1.014 (1.001-1.035) Urine Protein Negative (Negative) Urine Ketones Negative (Negative) Urine Blood Negative /uL (Negative) Urine Nitrite Negative (Negative) Urine Bilirubin Negative (Negative) Urine Urobilinogen Normal mg/dL (Negative) Urine Leukocyte Esterase Trace /uL (Negative) Urine RBC 1 /hpf (0 - 4) Urine Microscopic WBC 4 /HPF (0-5) Urine Squamous Epithelial Cells None seen /hpf (<5) Urine Bacteria None seen /hpf (None Seen) Urine Glucose Normal mg/dL (Normal) Other Laboratory Tests 11/25/24 13:29 11/24/24 05:57 Brief Hx & Hospital Course: This is a 74 yo female with known history of hypertension, DM, COPD, Bladder CA, Pacemaker, AVR at [facility] who presents with abdominal pain. Patient found to have intractable abdominal pain which was suspected secondary to symptomatic abdominal aortic aneurysm with a large diameter neck with significant thrombus in the proximal neck. Patient was seen by vascular surgery and recommended higher level of care because of the complicated abdominal aortic aneurysm. Patient has a known history of diabetes type 2 hypertension. Patient's constipation has been resolved. Patient has a history of aortic valve replacement as well as history of urinary bladder cancer status post tumor resection 27 years ago. Patient is being discharged to higher level of care for abdominal aortic aneurysm surgical intervention by the vascular surgery at [facility] [place]. Patient is currently understand verbalized understanding and agreeable to plan. er status post tumor resection 27 years ago, currently in remission Condition at Discharge: Stable Final Diagnosis/Problems List This is a 74 yo female with known history of hypertension, DM, COPD, Bladder CA, Pacemaker, AVR at [facility] who presents with abdominal pain. Patient found to have 1. Intractable abdominal pain suspected secondary to symptomatic abdominal aortic aneurysm with a large diameter neck with significant thrombus in the proximal neck, vascular surgery recommended higher level of care 2. Hypertension better controlled 3. Diabetes mellitus type 2 4. Constipation, improved 5. History of aortic valve replacement 6. History of urinary bladder cancer status post tumor resection 27 years ago, currently in remission Discharge Disposition: Acute Care Facility SNF Discharge Will this Physician continue t: No Discharge Instruct/Medications Diet: Consistent carbohydrate, Cardiac 2g Na,low cholest Activity: Light activity Follow Up/Referral: Follow up at higher level of care at [facility] [place]. Medications: As reconciled and prescribed. Scheduled Amlodipine Besylate (Amlodipine Besylate), 5 MG PO DAILY, (Reported) Apixaban Base (Eliquis), 5 MG PO BID, (Reported) Atorvastatin Calcium (Atorvastatin Calcium), 80 MG PO QPM, (Reported) Fluticasone Propionate (Nasal) (Flonase Allergy Relief), 2 SPRAY NA BID, (Reported) Gabapentin (Gabapentin), 600 MG PO TID, (Reported) Lisinopril (Lisinopril), 5 MG PO BID, (Reported) Meclizine Hcl (Meclizine Hcl), 25 MG PO BID, (Reported) Metformin Hydrochloride (Metformin Hcl Er), 500 MG PO DAILY, (Reported) Oxycodone W/ Acetaminophen (Percocet 5/325MG), 1 TAB PO PRN, (Reported) Oxycodone W/ Acetaminophen (Oxycodone/Acetaminophen 10-300 mg), 1 TAB PO TID Pentoxifylline (Trental Er Tablet), 400 MG PO BID, (Reported) Prednisone (Prednisone), 5 MG PO BID, (Reported) Sertraline HCl (Sertraline Hydrochloride), 200 MG PO DAILY, (Reported) Miscellaneous Medications Pregabalin (Lyrica), 50 MG PO, (Reported) Discharge Statement: "Patient was advised to return to the ER or call 911 if any headaches, dizziness, shortness of breath, chest pain, abdominal pain, bleeding, fevers, or worsening of medical condition. Patient was counseled about treatment plan, medications, possible side effects, patientverbalized understanding. All questions were answered to the best of my ability. This discharge took greater then 30 minutes in planning, reviewing documentation, counseling the patient, and discussing with other team members." ASSESSMENT ASSESSMENT Assessment This is a 74 yo female with known history of hypertension, DM, COPD, Bladder CA, Pacemaker, AVR at [facility] who presents with abdominal pain. Patient found to have 1. Intractable abdominal pain suspected secondary to symptomatic abdominal aortic aneurysm with a large diameter neck with significant thrombus in the proximal neck, vascular surgery recommended higher level of care 2. Hypertension better controlled 3. Diabetes mellitus type 2 4. Constipation, improved 5. History of aortic valve replacement 6. History of urinary bladder cancer status post tumor resection 27 years ago, currently in remission Date of Service: Nov 26, 2024 Billing Provider: SIM KRUEGER MD Common Visit Codes: NOT BILLABLE SIM KRUEGER MD Nov 26, 2024 17:01
[2024-11-26] MEDS ORDERED: POLYETHYLENE GLYCOL 17 GM PWDR PO SCH (22:00)
== END 2024-11-26 18:50 | disposition short-term general hospital (02) | DRG 299 ==
LOC: ER 11:57 → OVERFLOW 22:14 → DOU IN ICU 11-18 04:47 → TELE-WESTW 11-21 02:38
PROVIDERS: ADMIT Nurse Practitioner Family; ATTEND Nurse Practitioner Family
DX: I71.40 Abdominal aortic aneurysm, without rupture, unspecified (principal); J96.01 Acute respiratory failure with hypoxia; K83.8 Other specified diseases of biliary tract; I16.0 Hypertensive urgency; E11.9 Type 2 diabetes mellitus without complications; K59.00 Constipation, unspecified; I10 Essential (primary) hypertension; F17.210 Nicotine dependence, cigarettes, uncomplicated; I25.10 Atherosclerotic heart disease of native coronary artery without angina pectoris; J44.9 Chronic obstructive pulmonary disease, unspecified; Z85.51 Personal history of malignant neoplasm of bladder; Z88.8 Allergy status to other drugs, medicaments and biological substances; Z79.899 Other long term (current) drug therapy; Z79.01 Long term (current) use of anticoagulants; Z79.84 Long term (current) use of oral hypoglycemic drugs; Z90.710 Acquired absence of both cervix and uterus; Z82.49 Family history of ischemic heart disease and other diseases of the circulatory system; Z95.2 Presence of prosthetic heart valve; Z80.51 Family history of malignant neoplasm of kidney; Z80.1 Family history of malignant neoplasm of trachea, bronchus and lung
CPT/HCPCS: 36415; 74177; 80048; 80053; 81001; 82247; 82962; 83690; 83735; 84075; 84155; 84450; 84460; 85025; 86850; 86900; 86901; 87081; 96374; 96375; 97162; G0378; J2405; J2470